=== PATIENT | female | born 1945 | race Hispanic/Latino ===

== ENCOUNTER → 2020-03-07 | Outpatient (CLI) | payer MEDICARE | END | disposition home or self-care (01) | LOC: RAH 09:05 | PROVIDERS: ATTEND Family Medicine | DX: I70.203 Unspecified atherosclerosis of native arteries of extremities, bilateral legs (principal); R20.0 Anesthesia of skin | CPT/HCPCS: 93925 ==

== ENCOUNTER 2025-03-04 09:23 | Observation (INO) | payer MEDICARE, OTHER ==
[~2025-03-04] VITALS: Ht 160 cm; Wt 63.0 kg
--- NOTE | 2025-03-04 09:52 | EKG ---
[facility] Test Date: 2025-03-04 Test Time: 09:49:52 Pat Name: CORRINA LANGE Department: [facility] Room: Gender: F Lead Operator: [id number] : 1945 Requested By: AGUILA WILDE Order Number: [id number] Reading MD: Ba Woodson Measurements Intervals [place] Rate: 95 P: 56 [place]: 124 QRS: -46 QRSD: 103 T: 83 QT: 379 QTc: 477 Interpretive Statements Sinus rhythm Left anterior fascicular block No previous ECG available for comparison Electronically Signed On 03-04-2025 12:29:23 CDT by Ba Woodson Please click the below link to view image of tracing.
[2025-03-04] MEDS: ondanSETRON 4MG INJ IVP ONE (09:53)
[2025-03-04] MEDS: PANTOPrazole 40 MG/VIAL IVP ONE (09:53)
[2025-03-04] MEDS: LACTATED RINGERS 1000ML 1,000 ML IV ONE (09:53)
[2025-03-04 10:37] LABS: BASOPHILS # (AUTO) 0.12 K/uL (0.00-0.20); BASOPHILS % (AUTO) 0.4 % (0.0-5.0); EOSINOPHILS # (AUTO) 0.06 K/uL (0.00-0.70); EOSINOPHILS % (AUTO) 0.2 % (0.0-8.0); HEMATOCRIT 46.5 % (36-48); IMMATURE GRANULOCYTE ABSOLUTE 0.22 K/uL (0-1); LYMPHOCYTES # (AUTO) 0.6 K/uL (1.0-4.8); LYMPHOCYTES % (AUTO) 1.8 % (21.0-51.0); MEAN CORPUSCULAR HEMOGLOBIN 29.8 pg (27.0-33.0); MEAN CORPUSCULAR HGB CONC 32.5 g/dL (32.0-36.0); MEAN CORPUSCULAR VOLUME 91.7 fL (79-99); MONOCYTES # (AUTO) 0.8 K/uL (0.1-1.0); MONOCYTES % (AUTO) 2.6 % (3.0-13.0); NEUTROPHILS # (AUTO) 29.8 K/uL (1.8-7.7); NEUTROPHILS % (AUTO) 94.3 % (40.0-77.0); PLATELET COUNT (AUTO) 282 K/uL (130-400); RED BLOOD CELL COUNT(AUTO) 5.07 MIL/uL (4.00-5.50); RED CELL DISTRIBUTION WIDTH 12.5 % (11.0-15.5)
[2025-03-04 10:47] LABS: CREATININE 0.7 mg/dL (0.5-1.0); POTASSIUM 5.2 mmol/L (3.5-5.1)
[2025-03-04 10:50] LABS: WHITE BLOOD COUNT (AUTO) 31.6 K/uL (4.8-10.8)
[2025-03-04 10:51] LABS: ALBUMIN 3.8 g/dL (3.5-5.0); BILIRUBIN,TOTAL 0.8 mg/dL (0.2-1.0); TOTAL PROTEIN, SERUM 8.1 g/dL (6.0-8.3)
[2025-03-04 11:07] LABS: APPEARANCE,URINE CLEAR (CLEAR); BILIRUBIN,URINE NEGATIVE (NEGATIVE); COLOR,URINE YELLOW (YELLOW); GLUCOSE, URINE (UA) NEGATIVE (NEGATIVE); KETONES,URINE NEGATIVE (NEGATIVE); LEUKOCYTE ESTERASE ,URINE NEGATIVE Leu/uL (NEGATIVE); NITRATE,URINE NEGATIVE (NEGATIVE); OCCULT BLOOD,URINE NEGATIVE (NEGATIVE); PROTEIN,URINE NEGATIVE (NEGATIVE); UROBILINOGEN,URINE 0.2 mg/dL (0.2-1.0)
[2025-03-04 11:11] LABS: ADD UA MICROSCOPIC YES
[2025-03-04 11:22] LABS: BACTERIA,URINE RARE /HPF (None Seen); MUCUS,URINE RARE LPF (None Seen); RBC,URINE 0-1 /HPF (0-1); SQUAMOUS EPITHELIAL CELL,UR RARE /HPF (0-2)
[2025-03-04 11:31] LABS: BAND NEUTROPHILS % (MANUAL) 2 % (0-2); LYMPHOCYTES % (MANUAL) 5 % (22-44); MONOCYTES % (MANUAL) 1 % (2-9); SEGMENTED NEUTROPHILS % 92 % (40-70); TOTAL CELLS COUNTED 100
[2025-03-04 11:32] LABS: MAN.DIFF COMMENT-IMPRESSION MANUAL DIFFERENTIAL; PLATELET MORPHOLOGY COMMENT ADEQUATE; WBC MORPHOLOGY VACUOLATION 1+
--- NOTE | 2025-03-04 11:35 | ERN ---
General Chief Complaint: Diarrhea Stated Complaint: DIARRHEA Time Seen by MD: 09:25 Source: patient, family History of Present Illness Initial Comments PATIENT IS A 79-YEAR-OLD FEMALE COMING IN TO BE EVALUATED FOR DIARRHEA AND VOMITING. PATIENT STATES THAT THESE SYMPTOMS BEGAN EARLIER TODAY. SHE STATES THAT THESE SYMPTOMS BEGAN SHORTLY AFTER SHE THINKS EATING LIVER. SHE WAS ALSO ON MEDICATIONS FOR DIABETES AND BELIEVES THIS IS WHAT IS CAUSING HER DIARRHEA AND VOMITING. Allergies: Coded Allergies: No Known Drug Allergies (Unverified Allergy, Unknown, 03/04/25) Past Medical History Past Medical History: Diabetes-Type II, High Cholesterol, Hypertension Past Surgical History: Hysterectomy, Tonsillectomy ROS Dictation CONSTITUTIONAL: NO CHILLS, NO FEVER, NO WEAKNESS, NO DIAPHORESIS, NO MALAISE. HEAD/FACE: NO SIGNS OF TRAUMA. EENT: NO EYE PAIN, NO BLURRED VISION, NO TEARING, NO DOUBLE VISION, NO EAR PAIN, NO EAR DISCHARGE, NO NOSE PAIN, NO NASAL CONGESTION, NO THROAT PAIN, NO THROAT SWELLING, NO MOUTH PAIN. RESPIRATORY: NO COUGH, NO ORTHOPNEA, NO SOB, NO STRIDOR, NO WHEEZING. CARDIOVASCULAR: NO CHEST PAIN, NO EDEMA, NO PALPITATIONS, NO SYNCOPE. GASTROINTESTINAL/ABDOMINAL: NO ABDOMINAL PAIN, NO CONSTIPATION, NO DIARRHEA, NO NAUSEA, NO VOMITING. GENITOURINARY: NO ABNORMAL DISCHARGE, NO DYSURIA, NO FREQUENT URINATION, NO HEMATURIA. NO COMPLAINTS OF PAIN IN THE GENITALS. MUSCULOSKELETAL: NO BACK PAIN, NO GOUT, NO JOINT PAIN, NO JOINT SWELLING, NO MUSCLE PAIN, NO MUSCLE STIFFNESS, NO NECK PAIN. INTEGUMENTARY: NO CHANGE IN COLOR, NO CHANGE IN HAIR/NAILS, NO DRYNESS, NO LESION, NO LUMPS, NO RASH. NEUROLOGICAL/PSYCH: NO ANXIETY, NOT DEPRESSED, NO EMOTIONAL PROBLEM, NO HEADACHE, NO NUMBNESS, NO PRE-EXISTING DEFICIT, NO HISTORY OF SEIZURES, NO TREMORS, NO WEAKNESS. HEMATOLOGIC/LYMPHATIC: NOT ANEMIC, NO HISTORY OF BLOOD CLOTS, NO APPARENT BLEEDING, NO BRUISING, GLANDS NOT SWOLLEN. ALL SYSTEMS NEGATIVE, EXCEPT NOTED. Physical Exam Physical Exam Dictation VITAL SIGNS: REVIEWED. GENERAL APPEARANCE: ALERT, ORIENTED X3, NO ACUTE DISTRESS, OBESE. HEAD AND FACE: NON-TRAUMATIC. EYES: PERRL, PINK CONJUNCTIVAS, EYELID NO TRAUMA, ANTERIOR CHAMBER CLEAR. EARS: PINNAS INTACT AND NO SIGNS OF TRAUMA OR ERYTHEMA. EAR CANALS CLEAR AND NO DISCHARGE. TMS NO ERYTHEMA. NOSE: NO DISCHARGE, NO BLEEDING. OROPHARYNX: MOUTH NORMAL, TEETH NO CARIES, TONGUE PINK. PHARYNX CLEAR, NO ERYTHEMA. TONSILS NO EXUDATES, NO ABSCESSES NOTED. MUCOUS MEMBRANE MOIST. NECK: SUPPLE, NON-TENDER, NO THYROMEGALY, NO MASSES, NO JVD, NO BRUITS. BREAST: DEFERRED. CHEST: NO TENDERNESS, NO CREPITUS, NO PARADOXICAL MOVEMENT, NO RETRACTIONS. LUNGS: CLEAR, WELL-VENTILATED, SYMMETRIC, NO RALES, NO WHEEZING, NO RHONCHI, NO STRIDOR, GOOD BREATH SOUNDS BILATERALLY. HEART: REGULAR RATE, REGULAR RHYTHM, NO MURMUR, NO GALLOPS. VASCULAR: NO PERIPHERAL EDEMA. ABDOMEN: SOFT, POSITIVE BOWEL SOUNDS, NONDISTENDED, NO GUARDING, NONTENDER, NO REBOUND, NO MASSES NO HEPATOMEGALY, NO SPLENOMEGALY, NO PEARSON'S SIGN, NO HERNIAS. RECTAL: DEFERRED. GENITAL: DEFERRED. NEUROLOGICAL: NORMAL SPEECH, GROSS MOTOR FUNCTION INTACT, GROSS SENSORY FUNCTION INTACT. MUSCULOSKELETAL: NECK NONTENDER, FULL RANGE OF MOTION, BACK NONTENDER, FULL RANGE OF MOTION. EXTREMITIES: NONTENDER, FULL RANGE OF MOTION. SKIN: COLOR PINK, DRY, NO TURGOR, NO RASH, NO LACERATIONS, NO ABRASIONS, NO CONTUSIONS. LYMPHATICS: DEFERRED. Results Laboratory and Microbiology Lab and Micro Result Laboratory Tests Test 03/04/25 09:44 03/04/25 10:06 03/04/25 11:35 White Blood Count 31.6 K/uL (4.8-10.8) *H Red Blood Count 5.07 MIL/uL (4.00-5.50) Hemoglobin 15.1 g/dL (12.0-16.0) Hematocrit 46.5 % (36-48) Mean Corpuscular Volume 91.7 fL (79-99) Mean Corpuscular Hemoglobin 29.8 pg (27.0-33.0) Mean Corpuscular Hemoglobin Concent 32.5 g/dL (32.0-36.0) Red Cell Distribution Width 12.5 % (11.0-15.5) Platelet Count 282 K/uL (130-400) Mean Platelet Volume 10.1 fL (7.5-10.5) Immature Granulocyte % (Auto) 0.7 % (0-1) Neutrophils (%) (Auto) 94.3 % (40.0-77.0) H Lymphocytes (%) (Auto) 1.8 % (21.0-51.0) L Monocytes (%) (Auto) 2.6 % (3.0-13.0) L Eosinophils (%) (Auto) 0.2 % (0.0-8.0) Basophils (%) (Auto) 0.4 % (0.0-5.0) Neutrophils # (Auto) 29.8 K/uL (1.8-7.7) H Lymphocytes # (Auto) 0.6 K/uL (1.0-4.8) L Monocytes # (Auto) 0.8 K/uL (0.1-1.0) Eosinophils # (Auto) 0.06 K/uL (0.00-0.70) Basophils # (Auto) 0.12 K/uL (0.00-0.20) Absolute Immature Granulocyte (auto 0.22 K/uL (0-1) Segmented Neutrophils % 92 % (40-70) H Band Neutrophils % 2 % (0-2) Lymphocytes % (Manual) 5 % (22-44) L Monocytes % (Manual) 1 % (2-9) L Nucleated Red Blood Cells 0.0 % (0.0-0.19) Differential Comment MANUAL DIFFERENTIAL White Cell Morphology Comment VACUOLATION 1+ Platelet Morphology Comment ADEQUATE Red Blood Cell Morphology NORMAL Sodium Level 138 mmol/L (136-145) Potassium Level 5.2 mmol/L (3.5-5.1) H Chloride Level 103 mmol/L (101-111) Carbon Dioxide Level 27 mmol/L (21-32) Blood Urea Nitrogen 23 mg/dL (7-18) H Creatinine 0.7 mg/dL (0.5-1.0) Glomerular Filtration Rate Calc 89 mL/min (>90) Random Glucose 154 mg/dL (70-105) H Total Calcium 9.5 mg/dL (8.5-10.1) Total Bilirubin 0.8 mg/dL (0.2-1.0) Aspartate Amino Transf (AST/SGOT) 49 U/L (10-37) H Alanine Aminotransferase (ALT/SGPT) 45 U/L (12-78) Alkaline Phosphatase 79 U/L (50-136) Total Creatine Kinase 145 U/L (21-232) 90 U/L (21-232) # Troponin I High Sensitivity 5 ng/L (4-50) 8 ng/L (4-50) Total Protein 8.1 g/dL (6.0-8.3) Albumin 3.8 g/dL (3.5-5.0) Lipase 39 U/L (16-77) Urine Color YELLOW (YELLOW) Urine Appearance CLEAR (CLEAR) Urine pH 5.0 (5.0-8.0) Urine Specific [place] 1.021 (1.001-1.031) Urine Protein NEGATIVE mg/dL (NEGATIVE) Urine Glucose (UA) NEGATIVE mg/dL (NEGATIVE) Urine Ketones NEGATIVE mg/dL (NEGATIVE) Urine Occult Blood NEGATIVE (NEGATIVE) Urine Nitrate NEGATIVE (NEGATIVE) Urine Bilirubin NEGATIVE mg/dL (NEGATIVE) Urine Urobilinogen 0.2 mg/dL (0.2-1.0) Urine Leukocyte Esterase NEGATIVE Leonard/uL Urine RBC 0-1 /HPF (0-1) Urine WBC 2-5 /HPF (0-1) H Urine Squamous Epithelial Cells RARE /HPF (0-2) Urine Bacteria RARE /HPF (None Seen) Lactic Acid Level 2.2 mmol/L (0.8-2.5) Labs Reviewed?: Yes EKG/XRAY/US/CT/MRI EKG Comment 03/04/2025 TIME 9:49 A.M. VENTRICULAR RATE 95 SINUS RHYTHM [place] [address] WAVE ELEVATION OR DEPRESSION CT Scan Comment [place] [id number] IMAGING REPORT Signed PATIENT: CORRINA LANGE MR#: [id number] : 1945 SEX: F AGE: 79 LOCATION: [facility] ORDER 115 STATUS: REG ER REPORT#: [id number] SERVICE [id number] REASON: SEPSIS ABD PAIN ORDERING PHYSICIAN: AGUILA WILDE MD PROCEDURE: ABD PEL WO - CT ABDOMEN/PELVIS W/O CONTRAST CT ABDOMEN/PELVIS W/O CONTRAST HISTORY: Abdominal pain COMPARISON: None TECHNIQUE: Multiple sequential axial images of the abdomen and pelvis were obtained from the dome of the diaphragm through symphysis pubis. Patient was not given contrast through intravenous route. Oral contrast was not given. FINDINGS: No pleural effusion is seen bilaterally. There is no evidence of parenchymal disease or pulmonary nodule of the visualized lower lungs. Degenerative changes of the thoracolumbar spine are present. The heart is not enlarged. Small bowel dilatation is seen with fluid filter may be related to enteritis. The liver, spleen, adrenal glands and pancreas are unremarkable. There is no evidence of hydronephrosis bilaterally. No evidence of renal stone is seen. Fecal material is seen in the colon. There are normal size retroperitoneal and mesenteric lymph nodes. No ascites is seen. Atherosclerotic changes are present. Pelvic sidewalls are symmetric bilaterally. Bladder is well distended without wall thickening. IMPRESSION: 1. Small bowel dilatation with fluid-filled may be related to enteritis. CT was performed with one or more following dose reduction techniques: automated exposure control, adjustment of the mA and kv according to patient's size, or use of a iterative reconstruction technique. DICTATED BY: GABBI MENSAH MD DATE: 03/04/25 1257 ELECTRONICALLY SIGNED BY: GABBI MENSAH MD DATE: 03/04/25 1304 [facility] MDM: DIFFERENTIAL DIAGNOSIS: SEPSIS, GASTROENTERITIS, RATIONALE: TESTS CONSIDERED AND ORDERED SECONDARY TO SHARED DECISION MAKING INCLUDE: LABS, ECG AND RADIOLOGY PREVIOUS OUTSIDE RECORDS REVIEWED: OLD ER VISITS. RISK OF COMPLICATION AND/OR MORBIDITY OR MORTALITY OF PATIENT MANAGEMENT: NONE MEDICATIONS-PER MEDICATION RECONCILIATION NEED FOR HOSPITALIZATION: PATIENT DOES MEET CRITERIA FOR HOSPITALIZATION. NEED FOR EMERGENCY MAJOR/MINOR SURGERY: NO THERE ARE NO SOCIAL CONCERNS WITH THIS PATIENT. PRESCRIPTION DRUG MANAGEMENT PRESCRIPTIONS WILL INCLUDE SYMPTOMATIC CARE PATIENT'S PRIOR EXTERNAL MEDICAL RECORDS FROM OTHER ER VISITS WERE REVIEWED BY ME INDICATED. PRIOR TESTING AND RESULTS FROM PREVIOUS VISITS WERE REVIEWED. PRIOR TESTS WERE TAKEN INTO ACCOUNT WITH MEDICAL DECISION MAKING AND RESOURCE UTILIZATION, INDEPENDENT HISTORIAN/HISTORIANS WERE USED TO OBTAIN COMPLETE MEDICAL HISTORY. I INDEPENDENTLY INTERPRETED THE TEST THAT WERE PERFORMED, RESULTS WERE REVIEWED BY ME AND CONSIDERED FINDINGS ON RADIOLOGY IF ORDERED. MEDICAL MANAGEMENT AND EXAMINATION INTERPRETATION DISCUSSIONS WERE HAD BY ME WITH OTHER QUALIFIED HEALTHCARE PROFESSIONALS INDICATED FOR THE PATIENT'S CARE. PATIENT IS A 79-YEAR-OLD FEMALE COMING IN TO BE EVALUATED FOR ABDOMINAL PAIN DIARRHEA AND VOMITING. CT DID NOT DISCLOSE ACUTE FINDINGS. LABORATORY WO RKUP POSITIVE FOR ELEVATED WHITE BLOOD CELL COUNT WITH A HIS FINDINGS AND ELEVATED LACTIC ACID PATIENT WILL BE ADMITTED UNDER THE CARE OF [facility] FOR ONGOING MANAGEMENT OF GASTROENTERITIS WITH SEPSIS. ED Course Orders Procedure Category Date Status Time Cbc With Differential LAB 03/04/25 Complete 09:36 Comprehensive LAB 03/04/25 Complete Metabolic Panel 09:36 Troponin I High LAB 03/04/25 Complete Sensitivity 09:36 Urinalysis Profile LAB 03/04/25 Complete 09:36 12 Lead Ekg Tracing- EKG 03/04/25 Resulted Technical 09:36 Lactated Ringers PHA 03/04/25 Complete 1000ml (Lactated 10:00 Creatine Kinase, Total LAB 03/04/25 Complete 09:36 Lipase LAB 03/04/25 Complete 09:36 Pantoprazole 40mg Inj PHA 03/04/25 Complete (Protonix 40mg Inj 10:00 Ondansetron 4mg Inj PHA 03/04/25 Complete (Zofran 4mg Inj) 10:00 Manual Differential LAB 03/04/25 Complete 09:44 Blood Cult GISELLE 03/04/25 In Process 11:24 Culture Urine GISELLE 03/04/25 In Process 11:24 0.9%Nacl 1000ml (Ns PHA 03/04/25 In Process 1000ml) 11:30 Creatine Kinase, Total LAB 03/04/25 Complete 11:24 Troponin I High LAB 03/04/25 Complete Sensitivity 11:24 Lactic Acid LAB 03/04/25 Complete 11:24 Ceftriaxone 1g Vial PHA 03/04/25 Complete (Rocephine 1g Inj) 12:00 Ct Abdomen/Pelvis W/O CT 03/04/25 Resulted Contrast 11:55 Current Medications Medications (Trade) Dose Ordered Sig/Astrid Route PRN Reason Start Time Stop Time Status Last Admin Dose Admin Ceftriaxone Sodium (ROCEphine 1G INJ) 1 gm ONCE ONCE IVPB 03/04/25 12:00 03/04/25 12:01 DC 03/04/25 12:32 Lactated Ringer's 1,000 ml @ 0 mls/hr ONCE ONCE IV 03/04/25 10:00 03/04/25 10:01 DC 03/04/25 09:53 Ondansetron HCl (zoFRAN 4MG INJ) 4 mg ONCE ONCE IVP 03/04/25 10:00 03/04/25 10:01 DC 03/04/25 09:53 Pantoprazole Sodium (PROTonix 40MG INJ) 40 mg ONCE ONCE IVP 03/04/25 10:00 03/04/25 10:01 DC 03/04/25 09:53 Sodium Chloride 1,920 ml @ 640 mls/hr ONCE ONCE IV 03/04/25 11:30 03/04/25 14:29 03/04/25 11:36 Vital Signs Date Time Temp Pulse Resp B/P (MAP) Pulse Ox O2 Delivery O2 Flow Rate FiO2 03/04/25 13:44 98.1 91 18 121/63 93 Room Air* 0 21 03/04/25 11:37 97.9 95 18 119/54 98 Room Air* 0 21 03/04/25 09:53 97.9 101 18 142/70 98 Room Air* 0 21 03/04/25 09:25 97.9 107 16 164/71 98 Room Air Critical Care Note Comments CRITICAL CARE PROCEDURE NOTE AUTHORIZED AND PERFORMED BY: TOTAL CRITICAL CARE TIME: APPROXIMATELY 36 MINUTES DUE TO A HIGH PROBABILITY OF CLINICALLY SIGNIFICANT, LIFE THREATENING DETERIORATION, THE PATIENT REQUIRED MY HIGHEST LEVEL OF PREPAREDNESS TO INTERV JAVED EMERGENTLY AND I PERSONALLY SPENT THIS CRITICAL CARE TIME DIRECTLY AND PERSONALLY MANAGING THE PATIENT. THIS CRITICAL CARE TIME INCLUDED OBTAINING A HISTORY; EXAMINING THE PATIENT; PULSE OXIMETRY; ORDERING AND REVIEW OF STUDIES; ARRANGING URGENT TREATMENT WITH DEVELOPMENT OF A MANAGEMENT PLAN; EVALUATION OF PATIENT'S RESPONSE TO TREATMENT; FREQUENT REASSESSMENT; AND, DISCUSSIONS WITH OTHER PROVIDERS. THIS CRITICAL CARE TIME WAS PERFORMED TO ASSESS AND MANAGE THE HIGH PROBABILITY OF IMMINENT, LIFE-THREATENING DETERIORATION THAT COULD RESULT IN MULTI-ORGAN FAILURE. IT WAS EXCLUSIVE OF SEPARATELY BILLABLE PROCEDURES AND TREATING OTHER PATIENTS AND TEACHING TIME. PLEASE SEE MDM SECTION AND THE REST OF THE NOTE FOR FURTHER INFORMATION ON PATIENT ASSESSMENT AND TREATMENT. DX & DISP Disposition: Inpatient Decision to Admit Time: 13:59 Departure Impression: Primary Impression: Sepsis Additional Impression: Gastroenteritis Condition: Stable Referrals: ROBERT HERNANDEZ MD (PCP) AGUILA WILDE MD March 04, 2025 11:35
[2025-03-04] MEDS: [UNRECOGNIZED DRUG - OTHER] IV ONE (11:36)
[2025-03-04] MEDS: cefTRIAXone 1G VIAL IVPB ONE (12:32)
--- NOTE | 2025-03-04 13:04 | HMCIMG ---
CT ABDOMEN/PELVIS W/O CONTRAST HISTORY: Abdominal pain COMPARISON: None TECHNIQUE: Multiple sequential axial images of the abdomen and pelvis were obtained from the dome of the diaphragm through symphysis pubis. Patient was not given contrast through intravenous route. Oral contrast was not given. FINDINGS: No pleural effusion is seen bilaterally. There is no evidence of parenchymal disease or pulmonary nodule of the visualized lower lungs. Degenerative changes of the thoracolumbar spine are present. The heart is not enlarged. Small bowel dilatation is seen with fluid filter may be related to enteritis. The liver, spleen, adrenal glands and pancreas are unremarkable. There is no evidence of hydronephrosis bilaterally. No evidence of renal stone is seen. Fecal material is seen in the colon. There are normal size retroperitoneal and mesenteric lymph nodes. No ascites is seen. Atherosclerotic changes are present. Pelvic sidewalls are symmetric bilaterally. Bladder is well distended without wall thickening. IMPRESSION: 1. Small bowel dilatation with fluid-filled may be related to enteritis. CT was performed with one or more following dose reduction techniques: automated exposure control, adjustment of the mA and kv according to patient's size, or use of a iterative reconstruction technique.
--- NOTE | 2025-03-04 14:08 | HP ---
[facility] HISTORY & PHYSICAL Date Patient Seen: March 04, 2025 Time of Visit: 14:07 Supervising Physician: [Dr. Ni] Primary Care Physician: [Dr. Ba Calzada] Outpatient Specialists: [ ] Inpatient Consults: [ ] PROBLEM LIST: Sepsis without septic shock Acute gastroenteritis Hyperkalemia, POA Diabetes mellitus type 2 Hypertension Hyperlipidemia HPI: [This is a 79-year-old female with a history of chronic diarrhea who presented to the ED for evaluation of nausea, vomiting and diarrhea x1 day. Patient states it occurred after eating liver last night. She reports having 5-6 watery stools, no blood or mucus reported. No recent antibiotic use. She says she also had about six episode of nonbloody emesis last night. She also had one episode of diarrhea this morning. States her and daughter [age] the same but were without symptoms. She reports a history of having diarrhea on and off for several years. She was seen Gastroenterology outpatient and had a self-reported colonoscopy about three years ago. She denies any abdominal pain or cramping. Her labs on admission revealed significant leukocytosis of 31. Creatinine is normal. TSH and CK were negative. UA was normal. A CT of the abdomen and pelvis shows small bowel dilatation with fluid filled and may be related to enteritis. Her blood pressure and vitals were normal on admission. Sepsis alert was triggered in the ED. patient was treated with2 L NS,1 L LR, Rocephin Zofran, and Protonix.] PAST MEDICAL HX: see above PAST SURGICAL HX: noncontributory SOCIAL HISTORY: No tobacco, ETOH, or illicit drug use Coded Allergies: No Known Drug Allergies (Unverified Allergy, Unknown, 03/04/25) REVIEW OF SYSTEMS: 12 point ROS reviewed with patient. Pertinent positives mentioned above. Otherwise negative. PHYSICAL EXAM: GENERAL: alert, weak, awake oriented x 3 HEENT: EOMI, Sclera non icteric, moist mucosa NECK: Supple, no JVD, trachea midline LUNGS: Clear breath sounds bilaterally. No wheezes HEART: Regular rate and rhythm. Normal S1 and S2, without murmurs ABD: Abdomen soft, nontender. Bowel sounds present EXT: No clubbing cyanosis or edema NEURO: Alert and oriented to person, follows commands Vital Signs (last 8hr) Date Time Temp Pulse Resp B/P (MAP) Pulse Ox O2 Delivery O2 Flow Rate FiO2 03/04/25 13:44 98.1 91 18 121/63 93 Room Air* 0 03/04/25 11:37 97.9 95 18 119/54 98 Room Air* 0 21 03/04/25 09:53 97.9 101 18 142/70 98 Room Air* 0 21 03/04/25 09:25 97.9 107 16 164/71 98 Room Air LABS: Hematology Labs: Test 03/04/25 09:44 Range/Units White Blood Count 31.6 *H 4.8-10.8 K/uL Red Blood Count 5.07 4.00-5.50 MIL/uL Hemoglobin 15.1 12.0-16.0 g/dL Hematocrit 46.5 36-48 % Mean Corpuscular Volume 91.7 79-99 fL Mean Corpuscular Hemoglobin 29.8 27.0-33.0 pg Mean Corpuscular Hemoglobin Concent 32.5 32.0-36.0 g/dL Red Cell Distribution Width 12.5 11.0-15.5 % Platelet Count 282 130-400 K/uL Mean Platelet Volume 10.1 7.5-10.5 fL Immature Granulocyte % (Auto) 0.7 0-1 % Neutrophils (%) (Auto) 94.3 H 40.0-77.0 % Lymphocytes (%) (Auto) 1.8 L 21.0-51.0 % Monocytes (%) (Auto) 2.6 L 3.0-13.0 % Eosinophils (%) (Auto) 0.2 0.0-8.0 % Basophils (%) (Auto) 0.4 0.0-5.0 % Neutrophils # (Auto) 29.8 H 1.8-7.7 K/uL Lymphocytes # (Auto) 0.6 L 1.0-4.8 K/uL Monocytes # (Auto) 0.8 0.1-1.0 K/uL Eosinophils # (Auto) 0.06 0.00-0.70 K/uL Basophils # (Auto) 0.12 0.00-0.20 K/uL Absolute Immature Granulocyte (auto 0.22 0-1 K/uL Segmented Neutrophils % 92 H 40-70 % Band Neutrophils % 2 0-2 % Lymphocytes % (Manual) 5 L 22-44 % Monocytes % (Manual) 1 L 2-9 % Nucleated Red Blood Cells 0.0 0.0-0.19 % Differential Comment MANUAL DIFFERENTIAL White Cell Morphology Comment VACUOLATION 1+ Platelet Morphology Comment ADEQUATE Red Blood Cell Morphology NORMAL Chemistry Labs: Test 03/04/25 11:35 03/04/25 09:44 Range/Units Lactic Acid Level 2.2 0.8-2.5 mmol/L Total Creatine Kinase 90 # 21-232 U/L Troponin I High Sensitivity 8 4-50 ng/L Sodium Level 138 136-145 mmol/L Potassium Level 5.2 H 3.5-5.1 mmol/L Chloride Level 103 101-111 mmol/L Carbon Dioxide Level 27 21-32 mmol/L Blood Urea Nitrogen 23 H 7-18 mg/dL Creatinine 0.7 0.5-1.0 mg/dL Glomerular Filtration Rate Calc 89 >90 mL/min Random Glucose 154 H 70-105 mg/dL Total Calcium 9.5 8.5-10.1 mg/dL Total Bilirubin 0.8 0.2-1.0 mg/dL Aspartate Amino Transf (AST/SGOT) 49 H 10-37 U/L Alanine Aminotransferase (ALT/SGPT) 45 12-78 U/L Alkaline Phosphatase 79 50-136 U/L Total Protein 8.1 6.0-8.3 g/dL Albumin 3.8 3.5-5.0 g/dL Lipase 39 16-77 U/L DIAGNOSTICS / RADIOLOGY RESULTS: [ ] PLAN Start Levaquin and Flagyl p.o. Continue IVF with NS 50 mL an hour x5 100 mL Order stool panel, lactoferrin, fecal elastase Order a celiac panel Order PBS Monitor WBCs, repeat in a.m. NEURO: Minimize central acting medications as possible. Maintain fall precautions, adequate lighting during the day PULMONARY: Supplemental 02 as needed. Maintain aspiration precautions at all times CARDIOVASCULAR: Follow hemodynamics. Vital signs per facility protocol GI & NUTRITION: Continue with nutritional support. Continue stool softeners and laxatives as needed. KIDNEYS & ELECTROLYTES: Strict monitoring of intake, output and overall fluid balance. Avoid nephrotoxic medications to the extent possible. Medications to be dosed according to renal function. Monitor electrolytes and replace as needed ENDOCRINE: Maintain blood glucose between 100-180 at all times. Hypoglycemia protocol in place INFECTIOUS DISEASE: Trend temperature, WBC and procalcitonin level Follow cultures, deescalate antibiotics as soon as possible. Panculture if new onset fever ONCOLOGY/HEMATOLOGY/COAGULATION: Monitor for s/s of bleeding Monitor hemoglobin, coagulation studies as needed SKIN: Pressure ulcer prevention per facility protocol Specialty mattress ORTHO/REHAB: Continue PT/OT Prophylaxis: Continue GI and DVT prophylaxis Code Status: Full Resuscitation Disposition: TBD Other: Total patient care time exceeds 35 minutes excluding all procedures. MARYANN CARMONA March 04, 2025 14:08
[2025-03-04] MEDS ORDERED: BENZOCAINE/MENTH/CETYLPYRD CL 1 EACH LOZENGE MM PRN (14:30)
[2025-03-04] MEDS ORDERED: ondanSETRON 4MG INJ IV PRN (14:30)
[2025-03-04] MEDS ORDERED: guaiFENesin SUGAR-FREE 100 MG/5 ML UDCUP PO PRN (14:30)
[2025-03-04] MEDS ORDERED: LIDOCAINE HCL 2% VISCOUS 30 ML, MAG/ALUM/SIMETH 30ML 30 ML, DICYCLOMINE HCL 20 MG PO PRN (14:30)
[2025-03-04] MEDS ORDERED: LOPERAMIDE HCL 2 MG CAP PO PRN (14:30)
[2025-03-04] MEDS ORDERED: DiphenhydrAMINE HCL 50 MG/ML VIAL IV PRN (14:30)
[2025-03-04] MEDS ORDERED: ARTIFICAL TEARS SOL 15 ML OP PRN (14:30)
[2025-03-04] MEDS ORDERED: DiphenhydrAMINE HCL 25 MG CAPSULE PO PRN (14:30)
[2025-03-04] MEDS ORDERED: MAG/ALUM/SIMETH 30 ML UDCUP PO PRN (14:30)
[2025-03-04] MEDS ORDERED: NITROGLYCERIN 0.4 MG SL TAB SL PRN (14:30)
[2025-03-04] MEDS ORDERED: acetaMINOPHEN 325 MG TAB PO PRN ×2 (14:30)
[2025-03-04] MEDS ORDERED: guaiFENesin-DM 200/20MG 10ML PO PRN (14:30)
[2025-03-04] MEDS ORDERED: LACTULOSE 20 GM/30 ML UDCUP PO PRN (14:30)
[2025-03-04] MEDS ORDERED: doCUSate SODIUM 100 MG CAP PO PRN (14:30)
[2025-03-04] MEDS ORDERED: polyETHYLene GLYCol 3350 17 GM POWD.PACK PO PRN (14:30)
[2025-03-04] MEDS ORDERED: AMLO-257 PO (16:32)
[2025-03-04] MEDS ORDERED: OXYB5TAB20 PO (16:32)
[2025-03-04] MEDS ORDERED: ERGO500093 PO (16:32)
[2025-03-04] MEDS ORDERED: ATOR10TA69 PO (16:32)
[2025-03-04] MEDS ORDERED: EZET10TA48 PO (16:34)
--- NOTE | 2025-03-04 16:47 | NUR ---
REPORT GIVEN TO NITHIN MANZO AT 1645, PT TAKEN VIA [employer] WITH PERSONAL BELONGINGS.PT STABLE AAOX4 NO C/O PAIN, VITALS WNL.
--- NOTE | 2025-03-04 17:05 | NUR ---
PT ARRIVED TO UNIT FROM ER, BELONGINGS AT BEDSIDE. PT IN NO APPARENT DISTRESS AND DENIES PAIN AT THIS TIME. CHARGE NURSE MADE AWARE.
[2025-03-04 17:06] VITALS: BP 137/60; PULSE 92; RESP 18; TEMP 98.6
[2025-03-04 17:30] VITALS: O2SAT 98
[2025-03-04] MEDS: metRONIDazole 500 MG TABLET PO SCH (19:07)
[2025-03-04 20:00] VITALS: BP 109/63; PULSE 90; RESP 18; TEMP 98.1
[2025-03-04 20:20] VITALS: O2SAT 98
[2025-03-04] MEDS: FAMOTIDINE 20MG TAB PO SCH (20:26)
[2025-03-04] MEDS: FAMOTIDINE 20MG VIAL IV SCH (20:27)
[2025-03-05] VITALS: BP 117/67; PULSE 80; RESP 18; TEMP 98
[2025-03-05 04:00] VITALS: BP 109/59; PULSE 78; RESP 18; TEMP 98.6
[2025-03-05 06:51] LABS: BASOPHILS # (AUTO) 0.04 K/uL (0.00-0.20); BASOPHILS % (AUTO) 0.2 % (0.0-5.0); EOSINOPHILS # (AUTO) 0.15 K/uL (0.00-0.70); EOSINOPHILS % (AUTO) 0.9 % (0.0-8.0); HEMATOCRIT 41.6 % (36-48); IMMATURE GRANULOCYTE ABSOLUTE 0.07 K/uL (0-1); LYMPHOCYTES # (AUTO) 3.4 K/uL (1.0-4.8); LYMPHOCYTES % (AUTO) 21.2 % (21.0-51.0); MEAN CORPUSCULAR HEMOGLOBIN 30.3 pg (27.0-33.0); MEAN CORPUSCULAR HGB CONC 32.9 g/dL (32.0-36.0); MONOCYTES # (AUTO) 0.6 K/uL (0.1-1.0); MONOCYTES % (AUTO) 3.5 % (3.0-13.0); NEUTROPHILS # (AUTO) 11.9 K/uL (1.8-7.7); NEUTROPHILS % (AUTO) 73.8 % (40.0-77.0); PLATELET COUNT (AUTO) 265 K/uL (130-400); RED BLOOD CELL COUNT(AUTO) 4.52 MIL/uL (4.00-5.50); RED CELL DISTRIBUTION WIDTH 12.6 % (11.0-15.5); WHITE BLOOD COUNT (AUTO) 16.2 K/uL (4.8-10.8)
[2025-03-05 07:07] LABS: CREATININE 0.9 mg/dL (0.5-1.0); POTASSIUM 4.5 mmol/L (3.5-5.1)
[2025-03-05 07:45] VITALS: BP 104/55; PULSE 69; RESP 20; TEMP 98.4
[2025-03-05 08:00] VITALS: O2SAT 96
--- NOTE | 2025-03-05 08:56 | PN ---
[facility] PROGRESS NOTE Date Patient Seen: March 05, 2025 Time of Visit: 09:51 Supervising Physician: [Dr. Ni] Primary Care Physician: [Dr. Ba Calzada] Outpatient Specialists: [ ] Inpatient Consults: [ ] PROBLEM LIST: Sepsis without septic shock Acute gastroenteritis Hyperkalemia, POA Diabetes mellitus type 2 Hypertension Hyperlipidemia INTERVAL HISTORY: [Patient's blood pressure remains soft, no fever overnight. She is in no respiratory distress saturating well on room air. Continues on Flagyl and Levaquin. WBC remains elevated but has significantly downtrended. Has not had any nausea, vomiting or diarrhea since admission, And therefore has not collected a stool sample for testing.] REVIEW OF SYSTEMS: 12 point ROS reviewed with patient. Pertinent positives mentioned above. Otherwise negative. PHYSICAL EXAM: GENERAL: alert, weak, awake oriented x 3 HEENT: EOMI, Sclera non icteric, moist mucosa NECK: Supple, no JVD, trachea midline LUNGS: Clear breath sounds bilaterally. No wheezes HEART: Regular rate and rhythm. Normal S1 and S2, without murmurs ABD: Abdomen soft, nontender. Bowel sounds present EXT: No clubbing cyanosis or edema NEURO: Alert and oriented to person, follows commands Vital Signs (last 8hr) Date Time Temp Pulse Resp B/P (MAP) Pulse Ox O2 Delivery O2 Flow Rate FiO2 03/05/25 07:45 98.4 69 20 104/55 96 Room Air 21 03/05/25 04:00 98.6 78 18 109/59 94 Room Air 21 LABS: Hematology Labs: Test 03/05/25 06:29 03/04/25 09:44 Range/Units White Blood Count 16.2 #H 4.8-10.8 K/uL Red Blood Count 4.52 4.00-5.50 MIL/uL Hemoglobin 13.7 12.0-16.0 g/dL Hematocrit 41.6 36-48 % Mean Corpuscular Volume 92.0 79-99 fL Mean Corpuscular Hemoglobin 30.3 27.0-33.0 pg Mean Corpuscular Hemoglobin Concent 32.9 32.0-36.0 g/dL Red Cell Distribution Width 12.6 11.0-15.5 % Platelet Count 265 130-400 K/uL Mean Platelet Volume 9.5 7.5-10.5 fL Immature Granulocyte % (Auto) 0.4 0-1 % Neutrophils (%) (Auto) 73.8 40.0-77.0 % Lymphocytes (%) (Auto) 21.2 21.0-51.0 % Monocytes (%) (Auto) 3.5 3.0-13.0 % Eosinophils (%) (Auto) 0.9 0.0-8.0 % Basophils (%) (Auto) 0.2 0.0-5.0 % Neutrophils # (Auto) 11.9 H 1.8-7.7 K/uL Lymphocytes # (Auto) 3.4 1.0-4.8 K/uL Monocytes # (Auto) 0.6 0.1-1.0 K/uL Eosinophils # (Auto) 0.15 0.00-0.70 K/uL Basophils # (Auto) 0.04 0.00-0.20 K/uL Absolute Immature Granulocyte (auto 0.07 0-1 K/uL Nucleated Red Blood Cells 0.0 0.0-0.19 % Segmented Neutrophils % 92 H 40-70 % Band Neutrophils % 2 0-2 % Lymphocytes % (Manual) 5 L 22-44 % Monocytes % (Manual) 1 L 2-9 % Differential Comment MANUAL DIFFERENTIAL White Cell Morphology Comment VACUOLATION 1+ Platelet Morphology Comment ADEQUATE Red Blood Cell Morphology NORMAL Chemistry Labs: Test 03/05/25 06:29 03/05/25 05:36 03/04/25 15:38 03/04/25 11:35 Range/Units Sodium Level 140 136-145 mmol/L Potassium Level 4.5 3.5-5.1 mmol/L Chloride Level 106 101-111 mmol/L Carbon Dioxide Level 28 21-32 mmol/L Blood Urea Nitrogen 12 7-18 mg/dL Creatinine 0.9 0.5-1.0 mg/dL Glomerular Filtration Rate Calc 66 >90 mL/min Random Glucose 124 H 70-105 mg/dL Total Calcium 8.6 8.5-10.1 mg/dL Whole Blood Glucose 102 70-110 MG/DL Lactic Acid Level 2.1 0.8-2.5 mmol/L Procalcitonin 0.73 H 0.05-0.5 ng/mL Thyroid Stimulating Hormone (TSH) 0.39 0.36-3.74 uIU/mL Total Creatine Kinase 90 # 21-232 U/L Troponin I High Sensitivity 8 4-50 ng/L Test 03/04/25 09:44 Range/Units Total Bilirubin 0.8 0.2-1.0 mg/dL Aspartate Amino Transf (AST/SGOT) 49 H 10-37 U/L Alanine Aminotransferase (ALT/SGPT) 45 12-78 U/L Alkaline Phosphatase 79 50-136 U/L Total Protein 8.1 6.0-8.3 g/dL Albumin 3.8 3.5-5.0 g/dL Lipase 39 16-77 U/L DIAGNOSTICS / RADIOLOGY RESULTS: [ ] PLAN Start Levaquin and Flagyl p.o. Continue IVF with NS 50 mL an hour x5 100 mL Order stool panel, lactoferrin, fecal elastase Order a celiac panel Order PBS Monitor WBCs, repeat in a.m. NEURO: Minimize central acting medications as possible. Maintain fall precautions, adequate lighting during the day PULMONARY: Supplemental 02 as needed. Maintain aspiration precautions at all times CARDIOVASCULAR: Follow hemodynamics. Vital signs per facility protocol GI & NUTRITION: Continue with nutritional support. Continue stool softeners and laxatives as needed. KIDNEYS & ELECTROLYTES: Strict monitoring of intake, output and overall fluid balance. Avoid nephrotoxic medications to the extent possible. Medications to be dosed according to renal function. Monitor electrolytes and replace as needed ENDOCRINE: Maintain blood glucose between 100-180 at all times. Hypoglycemia protocol in place INFECTIOUS DISEASE: Trend temperature, WBC and procalcitonin level Follow cultures, deescalate antibiotics as soon as possible. Panculture if new onset fever ONCOLOGY/HEMATOLOGY/COAGULATION: Monitor for s/s of bleeding Monitor hemoglobin, coagulation studies as needed SKIN: Pressure ulcer prevention per facility protocol Specialty mattress ORTHO/REHAB: Continue PT/OT Prophylaxis: Continue GI and DVT prophylaxis Code Status: Full Resuscitation Disposition: TBD Other: Total patient care time exceeds 35 minutes excluding all procedures. MARYANN CARMONA March 05, 2025 08:56
[2025-03-05] MEDS: LACTATED RINGERS 1000ML 1,000 ML IV SCH (10:24)
[2025-03-05] MEDS: levoFLOXacin 500 MG TABLET PO SCH (10:25)
[2025-03-05 11:59] VITALS: BP 131/67; PULSE 77; RESP 20; TEMP 98.2
[2025-03-05] MEDS ORDERED: ARTIFICAL TEARS SOL 15 ML OP PRN (15:00)
[2025-03-05 15:45] VITALS: BP 126/65; PULSE 70; RESP 20; TEMP 98.6
--- NOTE | 2025-03-05 16:35 | DS ---
[facility] DISCHARGE SUMMARY Date Patient Seen: March 05, 2025 Time of Visit: 17:33 Supervising Physician: [Dr. Ni] Primary Care Physician: [Dr. Ba Calzada] Outpatient Specialists: [ ] Inpatient Consults: [ ] PROBLEM LIST: Sepsis without septic shock, resolved Acute gastroenteritis, resolved Hyperkalemia, POA resolved Diabetes mellitus type 2 Hypertension Hyperlipidemia HOSPITAL COURSE: HPI (per admitting provider) [This is a 79-year-old female with a history of chronic diarrhea who presented to the ED for evaluation of nausea, vomiting and diarrhea x1 day. Patient states it occurred after eating liver last night. She reports having 5-6 watery stools, no blood or mucus reported. No recent antibiotic use. She says she also had about six episode of nonbloody emesis last night. She also had one episode of diarrhea this morning. States her and daughter [age] the same but were without symptoms. She reports a history of having diarrhea on and off for several years. She was seen Gastroenterology outpatient and had a se lf-reported colonoscopy about three years ago. She denies any abdominal pain or cramping. Her labs on admission revealed significant leukocytosis of 31. Creatinine is normal. TSH and CK were negative. UA was normal. A CT of the abdomen and pelvis shows small bowel dilatation with fluid filled and may be related to enteritis. Her blood pressure and vitals were normal on admission. Sepsis alert was triggered in the ED. patient was treated with2 L NS,1 L LR, Rocephin Zofran, and Protonix.] 5/4 Patient's blood pressure remains soft, no fever overnight. She is in no respiratory distress saturating well on room air. Continues on Flagyl and Levaquin. WBC remains elevated but has significantly downtrended. Has not had any nausea, vomiting or diarrhea since admission, And therefore has not collected a stool sample for testing. Will dc home With close follow-up with her PCP. Given elevated white count, we will discharge with antibiotics. Patient was advised to stop Trulicity pending re-evaluation with her PCP and director of undergraduate admissions. This may be the cause of her diarrhea but there may be other causes and for this she will need outpatient evaluation with GI. Patient verbalized understanding. 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 PCP notified of patients admission, hospital course and discharge. New Medications: Levofloxacin (Levofloxacin) 500 Mg Tablet 1 TAB PO DAILY for 5 Days, #5 TAB 0 Refills Metronidazole (Metronidazole) 500 Mg Tablet 1 TAB PO TID for 5 Days, #15 TAB 0 Refills Continued Medications: Amlodipine Besylate (Amlodipine Besylate) 5 Mg Tablet 5 MG PO DAILY, TAB Atorvastatin Calcium (Atorvastatin Calcium) 10 Mg Tablet 10 MG PO HS, TAB Ergocalciferol (Vitamin D2) (Vitamin D2) 1,250 Mcg (93567 Unit) Capsule 1250 MCG PO QWEEK, CAP Ezetimibe (Ezetimibe) 10 Mg Tablet 10 MG PO HS, TAB Oxybutynin Chloride (Oxybutynin Chloride) 5 Mg Tablet 5 MG PO HS, TAB PHYSICAL EXAM: GENERAL: alert, weak, awake oriented x 3 HEENT: EOMI, Sclera non icteric, moist mucosa NECK: Supple, no JVD, trachea midline LUNGS: Clear breath sounds bilaterally. No wheezes HEART: Regular rate and rhythm. Normal S1 and S2, without murmurs ABD: Abdomen soft, nontender. Bowel sounds present EXT: No clubbing cyanosis or edema NEURO: Alert and oriented to person, follows commands FOLLOW-UP: Follow-up with PCP in 2-3 days for re-evaluation. Complete antibiotics upon discharge. Stop Trulicity for now pending re-evaluation with PCP /Endocrinology. Keep appointments with Endocrinology outpatient as scheduled. Follow-up with GI for further evaluation of diarrhea. RECOMMENDATIONS: See Discharge Instructions This case was seen and discussed with my supervising physician. More than 30 minutes spent on discharge process, including evaluation of the patient, discussion with nursing staff, medication reconciliation and follow-up appointments MARYANN CARMONA March 05, 2025 16:35
[2025-03-05] MEDS ORDERED: METR-172 PO (16:50)
[2025-03-05] MEDS ORDERED: LEVO-70 PO (16:50)
--- NOTE | 2025-03-05 19:30 | NUR ---
PATIENT DISCHARGE HOME VIA PERSONAL VEHICLE. IV REMOVED INTACT AND TELE MONITOR REMOVED. ALL QUESTIONS AND CONCERNS ANSWERED.
[2025-03-06] MEDS ORDERED: FAMOTIDINE 20MG VIAL IV SCH (09:00)
== END 2025-03-05 19:45 | disposition home or self-care (01) ==
LOC: EDH 09:23 → EDHIP 09:24 → 4CH 17:00
PROVIDERS: ADMIT Internal Medicine Critical Care Medicine; ATTEND Internal Medicine Critical Care Medicine
DX: A41.9 Sepsis, unspecified organism (principal); K52.9 Noninfective gastroenteritis and colitis, unspecified; E87.5 Hyperkalemia; R11.2 Nausea with vomiting, unspecified; E11.9 Type 2 diabetes mellitus without complications; E78.5 Hyperlipidemia, unspecified; I10 Essential (primary) hypertension; Z90.710 Acquired absence of both cervix and uterus; Z98.890 Other specified postprocedural states; Z79.899 Other long term (current) drug therapy
CPT/HCPCS: 96374; 96361 ×2; 96375; 84443; 82550 ×2; 84484 ×2; 80053; 83690; 85025 ×2; 87040 ×2; 87086 ×2; 87186; 82948 ×4; 83605 ×2; 82784; 81001; 36415 ×2; 74176; 99291; 93005; 84145; 96376; 80048; G0378 ×30; J3490 ×2; J0696; J2405; J2470; J7120; 83516; 86231; 86364

== ENCOUNTER 2025-06-03 11:49 | Inpatient (IN) | payer OTHER ==
[~2025-06-03] VITALS: Ht 160 cm; Wt 65.6 kg
[~2025-06-03 11:49] MED LIST: AMLO-257 PO; ATOR10TA69 PO; ERGO500093 PO; EZET10TA48 PO; LEVO-70 PO; METR-172 PO; OXYB5TAB20 PO
--- NOTE | 2025-06-03 12:03 | ERN ---
ED Note History of Present Illness Stated Complaint: BACK PAIN Chief Complaint: Back Pain-No Injury Time Seen by MD: 11:54 Dictation: PATIENT IS A 80-YEAR-OLD FEMALE HERE WITH TWO COMPLAINTS 1ST COMPLAINT IS SHE IS HAVING RIGHT THORACIC LUMBAR PAIN THAT RADIATES DOWN HER RIGHT LEG SHE HAS HAD FOR THREE DAYS. SECOND COMPLAINT IS SHE SAID SHE FEELS DIZZY AND WAS WORSE WHEN SHE WAS DRIVING OVER TO [facility]. SHE HAD JUST SEEN HER DOCTOR YESTERDAY WHO PRESCRIBED BACLOFEN AND TYLENOL, SHE TOOK IT TOGETHER THIS MO RNING. SHE THINKS IT COULD HAVE BEEN DUE TO THE MEDICATIONS. NIH IS 0. PATIENT STATES SHE HAD NAUSEA VOMITING X1 THIS MORNING. Allergies: Coded Allergies: No Known Drug Allergies (Unverified Allergy, Unknown, 03/04/25) Home Meds Active Scripts Metronidazole (Metronidazole) 500 Mg Tablet, 1 TAB PO TID for 5 Days, #15 TAB 0 Refills Prov:CARMONAMARYANN PA 03/05/25 Levofloxacin (Levofloxacin) 500 Mg Tablet, 1 TAB PO DAILY for 5 Days, #5 TAB 0 Refills Prov:CARMONAMARYANN PA 03/05/25 Reported Medications Ezetimibe (Ezetimibe) 10 Mg Tablet, 10 MG PO HS, TAB 03/04/25 Atorvastatin Calcium (Atorvastatin Calcium) 10 Mg Tablet, 10 MG PO HS, TAB 03/04/25 Ergocalciferol (Vitamin D2) (Vitamin D2) 1,250 Mcg (71111 Unit) Capsule, 1250 MCG PO QWEEK, CAP 03/04/25 Oxybutynin Chloride (Oxybutynin Chloride) 5 Mg Tablet, 5 MG PO HS, TAB 03/04/25 Amlodipine Besylate (Amlodipine Besylate) 5 Mg Tablet, 5 MG PO DAILY, TAB 03/04/25 Past Medical History Past Medical History: Diabetes-Type II, Hypertension Surgical History: Other History: Not Applicable RN Note Reviewed/Agreed w/PFSH: Yes Review of System Dictation CONSTITUTIONAL: NEGATIVE EXCEPT FOR HPI HEAD/FACE: NEGATIVE EXCEPT FOR HPI EENT: NEGATIVE EXCEPT FOR HPI RESPIRATORY: NEGATIVE EXCEPT FOR HPI GASTROINTESTINAL/ABDOMINAL: NEGATIVE EXCEPT FOR HPI RIGHT FLANK PAIN/BACK PAIN GENITOURINARY: NEGATIVE EXCEPT FOR HPI MUSCULOSKELETAL: NEGATIVE EXCEPT FOR HPI INTEGUMENTARY: NEGATIVE EXCEPT FOR HPI NEUROLOGICAL/PSYCH: NEGATIVE EXCEPT FOR HPI MILD DIZZINESS HEMATOLOGIC/LYMPHATIC: NEGATIVE EXCEPT FOR HPI ALL SYSTEMS NEGATIVE, EXCEPT NOTED ABOVE. 13 POINT REVIEW OF SYSTEMS ASSESSED AND ALL NEGATIVE EXCEPT FOR ABOVE. Initial Vital Sign VS Vital Signs Date Time Temp Pulse Resp B/P (MAP) Pulse Ox O2 Delivery O2 Flow Rate FiO2 06/03/25 11:51 96.6 78 16 177/63 98 Room Air 0 06/03/25 11:55 21 Physical Exam Dictation VITAL SIGNS REVIEWED GENERAL APPEARANCE: ALERT, ORIENTED X 3, MILD ACUTE DISTRESS, WELL DEVELOPED, NOURISHED. HEAD AND FACE: NON-TRAUMATIC. EYES: PERRL, PINK CONJUNCTIVAS, EYELID NO TRAUMA, ANTERIOR CHAMBER WITH ARCUS SENILIS. EARS: PINNAS INTACT AND NO SIGNS OF TRAUMA OR ERYTHEMA EAR CANALS CLEAR AND NO DISCHARGE TM NO NOSE: NO DISCHARGE, NO BLEEDING. OROPHARYNX: MOUTH NORMAL, TONGUE PINK, PHARYNX CLEAR,NO ERYTHEMA, TONSILS NO EXUDATES, NO ABSCESSES NOTED, MUCOUS MEMBRANE MOIST NECK: SUPPLE, NON-TENDER, NO THYROMEGALY, NO MASSES, NO JVD, NO BRUITS BREAST:DEFERRED CHEST:NO TENDERNESS, NO CREPITUS, NO PARADOXICAL MOVEMENT, NO RETRACTIONS LUNGS:CLEAR, WELL-VENTILATED, SYMMETRIC, NO RALES, NO WHEEZING, NO RHONCHI, NO STRIDOR, GOOD BREATH SOUNDS BILATERALLY HEART: REGULAR RATE, REGULAR RHYTHM, NO MURMUR, NO GALLOPS VASCULAR: NO PERIPHERAL EDEMA, ABDOMEN: SOFT, POSITIVE BOWEL SOUNDS, NONDISTENDED, NO GUARDING, NONTENDER, NO REBOUND, NO MASSES NO HEPATOMEGALY, NO SPLENOMEGALY, NO PEARSON'S SIGN, NO HERNIAS. POSITIVE RIGHT CVAT RECTAL: DEFERRED GENITAL: DEFERRED NEUROLOGICAL: NORMAL SPEECH, MOTOR FUNCTION INTACT, SENSORY FUNCTION INTACT NIH IS 0 MUSCULOSKELETAL: NECK NONTENDER, FULL RANGE OF MOTION, BACK NONTENDER, FULL RANGE OF MOTION, EXTREMITIES: NONTENDER, FULL RANGE OF MOTION SKIN: COLOR PINK, DRY, NO TURGOR, NO RASH, NO LACERATIONS, NO ABRASIONS, NO CONTUSIONS. LYMPHATIC: DEFERRED Results (Laboratory/Radiology) Laboratory/Radiology Laboratory Tests Test 06/03/25 12:11 06/03/25 12:31 Urine Color YELLOW (YELLOW) Urine Appearance HAZY (CLEAR) Urine pH 6.0 (5.0-8.0) Urine Specific [place] 1.027 (1.001-1.031) Urine Protein 20 mg/dL (NEGATIVE) H Urine Glucose (UA) 500 mg/dL (NEGATIVE) H Urine Ketones 10 mg/dL (NEGATIVE) H Urine Occult Blood NEGATIVE (NEGATIVE) Urine Nitrate 2+ (NEGATIVE) H Urine Bilirubin NEGATIVE mg/dL (NEGATIVE) Urine Urobilinogen 0.2 mg/dL (0.2-1.0) Urine Leukocyte Esterase 75 Leonard/uL (NEGATIVE) H Urine RBC 2-5 /HPF (0-1) H Urine WBC 11-25 /HPF (0-1) H Urine Squamous Epithelial Cells MOD /HPF (0-2) Urine Bacteria MOD /HPF (None Seen) White Blood Count 14.7 K/uL (4.8-10.8) H Red Blood Count 4.64 MIL/uL (4.00-5.50) Hemoglobin 13.8 g/dL (12.0-16.0) Hematocrit 42.7 % (36-48) Mean Corpuscular Volume 92.0 fL (79-99) Mean Corpuscular Hemoglobin 29.7 pg (27.0-33.0) Mean Corpuscular Hemoglobin Concent 32.3 g/dL (32.0-36.0) Red Cell Distribution Width 12.2 % (11.0-15.5) Platelet Count 241 K/uL (130-400) Mean Platelet Volume 9.9 fL (7.5-10.5) Immature Granulocyte % (Auto) 0.4 % (0-1) Neutrophils (%) (Auto) 88.2 % (40.0-77.0) H Lymphocytes (%) (Auto) 8.0 % (21.0-51.0) L Monocytes (%) (Auto) 3.1 % (3.0-13.0) Eosinophils (%) (Auto) 0.1 % (0.0-8.0) Basophils (%) (Auto) 0.2 % (0.0-5.0) Neutrophils # (Auto) 13.0 K/uL (1.8-7.7) H Lymphocytes # (Auto) 1.2 K/uL (1.0-4.8) Monocytes # (Auto) 0.5 K/uL (0.1-1.0) Eosinophils # (Auto) 0.01 K/uL (0.00-0.70) Basophils # (Auto) 0.03 K/uL (0.00-0.20) Absolute Immature Granulocyte (auto 0.06 K/uL (0-1) Nucleated Red Blood Cells 0.0 % (0.0-0.19) White Cell Morphology Comment See comments Sodium Level 140 mmol/L (136-145) Potassium Level 4.9 mmol/L (3.5-5.1) Chloride Level 104 mmol/L (101-111) Carbon Dioxide Level 30 mmol/L (21-32) Blood Urea Nitrogen 17 mg/dL (7-18) Creatinine 0.6 mg/dL (0.5-1.0) Glomerular Filtration Rate Calc 92 mL/min (>90) Random Glucose 241 mg/dL (70-105) H Total Calcium 9.4 mg/dL (8.5-10.1) Troponin I High Sensitivity < 4 ng/L (4-50) L Labs Reviewed?: Yes EKG Comment: EKG SINUS RHYTHM/HEART RATE 61/LEFT AXIS DEVIATION T-WAVE FLATTENING IN LEADS V4 THROUGH V6 ED Course ED Course Orders Procedure Category Date Status Time Cbc With Differential LAB 06/03/25 Complete 11:59 Troponin I High LAB 06/03/25 Complete Sensitivity 11:59 Urinalysis Profile LAB 06/03/25 Complete 11:59 12 Lead Ekg Tracing- EKG 06/03/25 Complete Technical 11:59 0.9%Nacl 1000ml (Ns PHA 06/03/25 Complete 1000ml) 12:00 Ondansetron 4mg Inj PHA 06/03/25 Complete (Zofran 4mg Inj) 12:00 Basic Metabolic Panel LAB 06/03/25 Complete 11:59 Ct Head/Brain W/O CT 06/03/25 Logged Contrast 12:01 Culture Urine GISELLE 06/03/25 In Process 12:29 Blood Cult GISELLE 06/03/25 Logged 12:52 Ceftriaxone 2gm Vial PHA 06/03/25 Complete (Rocephin 2gm Inj) 12:52 Ketorolac PHA 06/03/25 Complete Tromethamine 15mg/Ml 13:30 Current Medications Medications (Trade) Dose Ordered Sig/Astrid Route PRN Reason Start Time Stop Time Status Last Admin Dose Admin Ceftriaxone Sodium (Rocephin 2gm Inj) 2 gm ONCE STAT IVPB 06/03/25 12:52 06/03/25 12:55 DC 06/03/25 12:57 Ketorolac Tromethamine (toRADol) 15 mg ONCE ONCE IV 06/03/25 13:30 06/03/25 13:31 DC Ondansetron HCl (zoFRAN 4MG INJ) 4 mg ONCE ONCE IVP 06/03/25 12:00 06/03/25 12:03 DC 06/03/25 12:51 Sodium Chloride 1,000 ml @ 0 mls/hr ONCE ONCE IV 06/03/25 12:00 06/03/25 12:03 DC 06/03/25 12:55 Vital Signs Date Time Temp Pulse Resp B/P (MAP) Pulse Ox O2 Delivery O2 Flow Rate FiO2 06/03/25 11:55 96.6 78 16 177/63 98 Room Air* 0 21 06/03/25 11:51 96.6 78 16 177/63 98 Room Air 0 1225/PATIENT IS AWARE SHE HAS PROBABLE PYELONEPHRITIS HAS A POSITIVE CVAT WITH 2+ NITRATES AND UTI. SHE WAS GIVEN ROCEPHIN AND FLUIDS. WE WILL BE ADMITTED TO THE HOSPITAL. SHE STATES SHE HAS BEEN HAVING THIS ACHY RIGHT FLANK PAIN FOR SEVERAL DAYS AND HAS A HISTORY OF URINARY TRACT INFECTIONS.1330/ 1330/SPOKE WITH CINTHYA AGUIAR HOSPITALIST REVIEWED EKG LABS AND INTERVENTIONS FOR PYELONEPHRITIS SHE WOULD AGREED TO ADMIT. HEART Score Response (Comments) Value EKG: Repolarization changes 1 Age: > 65yrs (+2) 2 Risk Factors: 1-2 risk factors (+1) 1 Initial Troponin: Normal limit (0) 0 Total 4 Medical Decision Making MDM MDM: DIFFERENTIAL DIAGNOSIS: DIZZINESS/PYELONEPHRITIS/UTI/MUSCLE SPASM/ELECTROLYTE IMBALANCE/DEHYDRATION/ACS/AMI RATIONALE: TESTS CONSIDERED AND ORDERED SECONDARY TO SHARED DECISION MAKING INCLUDE: LABS, ECG AND RADIOLOGY PREVIOUS OUTSIDE RECORDS REVIEWED: OLD ER VISITS. RISK OF COMPLICATION AND/OR MORBIDITY OR MORTALITY OF PATIENT MANAGEMENT: NONE MEDICATIONS-PER MEDICATION RECONCILIATION NEED FOR HOSPITALIZATION: PATIENT DOES MEET CRITERIA FOR HOSPITALIZATION. IV FLUIDS/ANTIBIOTICS NEED FOR EMERGENCY MAJOR/MINOR SURGERY: NO THERE ARE NO SOCIAL CONCERNS WITH THIS PATIENT. PRESCRIPTION DRUG MANAGEMENT PRESCRIPTIONS WILL INCLUDE SYMPTOMATIC CARE PATIENT'S PRIOR EXTERNAL MEDICAL RECORDS FROM OTHER ER VISITS WERE REVIEWED BY Kendal Powell INDICATED. PRIOR TESTING AND RESULTS FROM PREVIOUS VISITS WERE REVIEWED. PRIOR TESTS WERE TAKEN INTO ACCOUNT WITH MEDICAL DECISION MAKING AND RESOURCE UTILIZATION, INDEPENDENT HISTORIAN/HISTORIANS WERE USED TO OBTAIN COMPLETE MEDICAL HISTORY. I INDEPENDENTLY INTERPRETED THE TEST THAT WERE PERFORMED, RESULTS WERE REVIEWED BY ME AND CONSIDERED FINDINGS ON RADIOLOGY IF ORDERED. MEDICAL MANAGEMENT AND EXAMINATION INTERPRETATION DISCUSSIONS WERE HAD BY ME WITH OTHER QUALIFIED HEALTHCARE PROFESSIONALS INDICATED FOR THE PATIENT'S CARE. DX & DISP Disposition: Inpatient Decision to Admit Time: 13:27 Departure Impression: Primary Impression: Pyelonephritis of right kidney Additional Impressions: Uncontrolled diabetes mellitus, Dizziness, Nausea & vomiting Condition: Stable Referrals: ROBERT HERNANDEZ MD (PCP) Time of Disposition: 13:33 I have reviewed the case, and I agree with, Diagnosis and Plan PAO CHAVEZ NP Jun 03, 2025 12:03
[2025-06-03 12:28] LABS: GLUCOSE, URINE (UA) 500 mg/dL (NEGATIVE); LEUKOCYTE ESTERASE ,URINE 75 Leu/uL (NEGATIVE); NITRATE,URINE 2+ (NEGATIVE); OCCULT BLOOD,URINE NEGATIVE (NEGATIVE)
[2025-06-03 12:29] LABS: ADD UA MICROSCOPIC YES; APPEARANCE,URINE HAZY (CLEAR)
[2025-06-03 12:33] LABS: SQUAMOUS EPITHELIAL CELL,UR MOD /HPF (0-2)
--- NOTE | 2025-06-03 12:34 | EKG ---
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
[2025-06-03 12:36] LABS: IMMATURE GRANULOCYTE ABSOLUTE 0.06 K/uL (0-1); NUCLEATED RED BLOOD CELLS 0.0 % (0.0-0.19); PLATELET COUNT (AUTO) 241 K/uL (130-400); RED BLOOD CELL COUNT(AUTO) 4.64 MIL/uL (4.00-5.50); RED CELL DISTRIBUTION WIDTH 12.2 % (11.0-15.5); WHITE BLOOD COUNT (AUTO) 14.7 K/uL (4.8-10.8)
[2025-06-03 12:55] LABS: CREATININE 0.6 mg/dL (0.5-1.0); GLOMERULAR FILTR. RATE CALC 92.0 mL/min (>90); GLUCOSE,RANDOM 241.0 mg/dL (70-105); SODIUM SERUM 140.0 mmol/L (136-145); UREA NITROGEN, BLOOD 17.0 mg/dL (7-18)
[2025-06-03] MEDS: 0.9%NACL 1000ML 1,000 ML IV ONE (12:55)
--- NOTE | 2025-06-03 13:53 | HP ---
[facility] HISTORY & PHYSICAL Date Patient Seen: Jun 03, 2025 Time of Visit: 13:52 Supervising Physician: Kingsley Ortiz MD Primary Care Physician: Reema Morales MD Outpatient Specialists: Dr Fong (Endocrinology) Inpatient Consults: [ ] PROBLEM LIST: Acute pyelonephritis, POA Multifactorial generalized weakness (Baclofen, recent biphosphonate infusion, dehydration, infection) , POA Right flank pain, POA Hypertensive urgency, POA Uncontrolled type 2 diabetes mellitus with hyperglycemia, POA Recurrent UTIs Osteoporosis HPI: A 80-year-old female with a past medical history of significant for type 2 diabetes mellitus, hypertension, frequent urinary tract infection cyanosis fibr osis who presented to the emergency department with chief complaint of dizziness, generalized body weakness and right flank pain with tenderness to site. Symptoms began with the in the last 2-3 days. She reports having received an IV infusion of what she believes is called zoledronic acid a proximally one week ago for her osteoporosis. Two days ago she followed up with the primary care physician who prescribed baclofen for muscle spasms due to flank pain. She reports that after taking baclofen this morning she experienced increased weakness nausea and vomited x1. Patient denies any chest pain, fever, chills, visual changes or focal neurological symptoms. In the ED her and 90s stroke scale was [address] of the head which showed no acute fin dings. She remains generally weak but without focal neurological deficits. In the ED she arrived with a temperature of 96.6 heart rate of 78 respiratory rate of 16 blood pressure 177/63 saturating 98% on room air. Remarkable labs for white count of 14.7 neutrophils of 88.2. Chemistries shows a glucose of 241 mg/dL. Urinalysis shows a protein of 20 glucose 100 and ketones of 10 nitrates of 2+ leukocyte esterase 75 RBCs of 2-5 WBCs of 11 to 25. Patient will be admitted to medical floor for acute pyelonephritis on IV antibiotics. Her generalized body weakness possibly multifactorial given baclofen, related side effects of recent by phosphorus eight, dehydration and infection. PAST MEDICAL HX: see above PAST SURGICAL HX: noncontributory SOCIAL HISTORY: No tobacco, ETOH, or illicit drug use Coded Allergies: No Known Drug Allergies (Unverified Allergy, Unknown, 03/04/25) REVIEW OF SYSTEMS: Const: + dizziness and weakness no fevers or chills Eyes: no recent vision problems ENT: No congestion, ear pain, or sore throat C/V: no chest pain, palpitations or edema Resp: No cough, congestion, wheezing , or Shortness of breath GI: + nausea, one episode of vomiting, denies abdominal pain or diarrhea. : + right flank pain history of recurrent UTIs M/S: + reports treated for recent muscle spasm Skin: No rash Neuro: No focal deficits reported, no headache or visual disturbances. Psych: no depression or anxiety Heme: no abnormal bruising or bleeding Lymph: no swollen glands PHYSICAL EXAM: GENERAL: Elderly female, alert, appears fatigued but not in any acute distress. HEENT: EOMI, Sclera non icteric, moist mucosa NECK: Supple, no JVD, trachea midline LUNGS: Clear breath sounds bilaterally. No wheezes HEART: Regular rate and rhythm. Normal S1 and S2, without murmurs ABD: Abdomen soft, nontender. Bowel sounds present, right flank tenderness. EXT: No clubbing cyanosis or edema NEURO: Alert and oriented x3, cranial nerves 2-7 intact, no focal weakness, normal tone, NIH of 0. Vital Signs (last 8hr) Date Time Temp Pulse Resp B/P (MAP) Pulse Ox O2 Delivery O2 Flow Rate FiO2 06/03/25 11:55 96.6 78 16 177/63 98 Room Air* 0 21 06/03/25 11:51 96.6 78 16 177/63 98 Room Air 0 LABS: Hematology Labs: Test 06/03/25 12:31 Range/Units White Blood Count 14.7 H 4.8-10.8 K/uL Red Blood Count 4.64 4.00-5.50 MIL/uL Hemoglobin 13.8 12.0-16.0 g/dL Hematocrit 42.7 36-48 % Mean Corpuscular Volume 92.0 79-99 fL Mean Corpuscular Hemoglobin 29.7 27.0-33.0 pg Mean Corpuscular Hemoglobin Concent 32.3 32.0-36.0 g/dL Red Cell Distribution Width 12.2 11.0-15.5 % Platelet Count 241 130-400 K/uL Mean Platelet Volume 9.9 7.5-10.5 fL Immature Granulocyte % (Auto) 0.4 0-1 % Neutrophils (%) (Auto) 88.2 H 40.0-77.0 % Lymphocytes (%) (Auto) 8.0 L 21.0-51.0 % Monocytes (%) (Auto) 3.1 3.0-13.0 % Eosinophils (%) (Auto) 0.1 0.0-8.0 % Basophils (%) (Auto) 0.2 0.0-5.0 % Neutrophils # (Auto) 13.0 H 1.8-7.7 K/uL Lymphocytes # (Auto) 1.2 1.0-4.8 K/uL Monocytes # (Auto) 0.5 0.1-1.0 K/uL Eosinophils # (Auto) 0.01 0.00-0.70 K/uL Basophils # (Auto) 0.03 0.00-0.20 K/uL Absolute Immature Granulocyte (auto 0.06 0-1 K/uL Nucleated Red Blood Cells 0.0 0.0-0.19 % White Cell Morphology Comment See comments Chemistry Labs: Test 06/03/25 12:31 Range/Units Sodium Level 140 136-145 mmol/L Potassium Level 4.9 3.5-5.1 mmol/L Chloride Level 104 101-111 mmol/L Carbon Dioxide Level 30 21-32 mmol/L Blood Urea Nitrogen 17 7-18 mg/dL Creatinine 0.6 0.5-1.0 mg/dL Glomerular Filtration Rate Calc 92 >90 mL/min Random Glucose 241 H 70-105 mg/dL Total Calcium 9.4 8.5-10.1 mg/dL Troponin I High Sensitivity < 4 L 4-50 ng/L DIAGNOSTICS / RADIOLOGY RESULTS: [place] [address] [address] IMAGING REPORT Signed PATIENT: CORIRNA LANGE MR#: [id number] : 1945 SEX: F AGE: 80 LOCATION: [facility] ORDER 1202 STATUS: ADM IN REPORT#: [id number] SERVICE 1201 REASON: DIZZINESS VERTIGO ONSET THIS MORNING. ORDERING PHYSICIAN: PAO CHAVEZ NP PROCEDURE: HEAD WO - CT HEAD/BRAIN W/O CONTRAST EXAM: CT Head Without IV contrast. CLINICAL HISTORY: DIZZINESS VERTIGO ONSET THIS MORNING. TECHNIQUE: Axial computed tomography images of the head/brain without intravenous contrast. COMPARISON: None provided. FINDINGS: BRAIN: There is diffuse cerebral atrophy, evidenced by prominence of the cortical sulci and ventricular system, compatible with age-related changes. There is evidence of chronic small vessel ischemic change characterized by bilateral periventricular and deep white matter hypodensities. There is a focus of calcified granuloma in right frontal lobe. No evidence of acute hemorrhage. No mass lesion. No CT evidence for acute territorial infarct. No midline shift or extra-axial collections. VENTRICLES: No hydrocephalus. ORBITS: The orbits are unremarkable. SINUSES AND MASTOIDS: The rest of the paranasal sinuses and mastoid air cells are clear. There is mild mucosal thickening in bilateral ethmoidal sinuses. BONES: No fracture. Hyperostosis of bilateral frontoparietal bone. SOFT TISSUES: Unremarkable. IMPRESSION: 1. No acute intracranial findings. 2. Chronic findings: Diffuse cerebral atrophy and chronic small vessel ischemic changes. /[place] DICTATED BY: CHERISE LARA MD DATE: 06/03/251455 ELECTRONICALLY SIGNED BY: CHERISE LARA MD DATE: 06/03/251455 PLAN Hold baclofen for now IV fluids with LR at 75 mL/hour Monitor electrolytes and renal function Follow urine culture Renal ultrasound to rule out complicated UTI Rocephin 2 g IV Q 24 hours Multimodal pain management and Zofran for nausea Meclizine PRN dizziness Monitor for worsening signs of infection or neurological status Fall precautions PT to eval and treat Case management for DC planning NEURO: Minimize central acting medications as possible. Maintain fall precautions, adequate lighting during the day PULMONARY: Supplemental 02 as needed. Maintain aspiration precautions at all times CARDIOVASCULAR: Follow hemodynamics. Vital signs per facility protocol GI & NUTRITION: Continue with nutritional support. Continue stool softeners and laxatives as needed. KIDNEYS & ELECTROLYTES: Strict monitoring of intake, output and overall fluid balance. Avoid nephrotoxic medications to the extent possible. Medications to be dosed according to renal function. Monitor electrolytes and replace as needed ENDOCRINE: Maintain blood glucose between 100-180 at all times. Hypoglycemia protocol in place INFECTIOUS DISEASE: Trend temperature, WBC and procalcitonin level Follow cultures, deescalate antibiotics as soon as possible. Panculture if new onset fever ONCOLOGY/HEMATOLOGY/COAGULATION: Monitor for s/s of bleeding Monitor hemoglobin, coagulation studies as needed SKIN: Pressure ulcer prevention per facility protocol Specialty mattress ORTHO/REHAB: Continue PT/OT Prophylaxis: Continue GI and DVT prophylaxis Code Status: Full Resuscitation Disposition: TBD Other: Total patient care time exceeds 35 minutes excluding all procedures. ATTESTATION BY PHYSICIAN I have evaluated the patient chart, medical records, and spoke with appropriate staff. I reviewed the documentation, medical decision making, and treatment plan as noted by the mid-level provider above. I agree with the findings and plan of care. Kingsley Ortiz MD, [facility] Jun 03, 2025 13:52
--- NOTE | 2025-06-03 13:57 | HMCIMG ---
EXAM: CT Head Without IV contrast. CLINICAL HISTORY: DIZZINESS VERTIGO ONSET THIS MORNING. TECHNIQUE: Axial computed tomography images of the head/brain without intravenous contrast. COMPARISON: None provided. FINDINGS: BRAIN: There is diffuse cerebral atrophy, evidenced by prominence of the cortical sulci and ventricular system, compatible with age-related changes. There is evidence of chronic small vessel ischemic change characterized by bilateral periventricular and deep white matter hypodensities. There is a focus of calcified granuloma in right frontal lobe. No evidence of acute hemorrhage. No mass lesion. No CT evidence for acute territorial infarct. No midline shift or extra-axial collections. VENTRICLES: No hydrocephalus. ORBITS: The orbits are unremarkable. SINUSES AND MASTOIDS: The rest of the paranasal sinuses and mastoid air cells are clear. There is mild mucosal thickening in bilateral ethmoidal sinuses. BONES: No fracture. Hyperostosis of bilateral frontoparietal bone. SOFT TISSUES: Unremarkable. IMPRESSION: 1. No acute intracranial findings. 2. Chronic findings: Diffuse cerebral atrophy and chronic small vessel ischemic changes. /[place]
[2025-06-03] MEDS ORDERED: GLUCAGON 1MG KIT 1 MG ML IM PRN (14:00)
[2025-06-03] MEDS ORDERED: PoTASSium chl 10% ELIXIR 20MEQ 20 MEQ/15 ML UDCUP PO PRN (14:00)
[2025-06-03] MEDS ORDERED: DEXTROSE 50%-WATER 50 ML DISP.SYRIN IV PRN (14:00)
[2025-06-03] MEDS ORDERED: MAGNESIUM 2GM PREMIX 50ML 50 ML IV PRN (14:00)
--- NOTE | 2025-06-03 14:21 | NUR ---
first attempt to provide report nurse currently admin meds at bedside will call back for report
--- NOTE | 2025-06-03 14:30 | NUR ---
REPORT RECEIVED FROM [facility] IN ER Per ER nurse, patient chief complaint of nause/vomiting, dizziness and bilateral flank pain. Received Rocephin x 2, 1 Liter of fluid, Zofran 4mg, and Toradol 15mg. Blood cultures, Urine, and urine cultures collected in ER. [facility] will follow. Patient admitted for acute pyelonephritis.
--- NOTE | 2025-06-03 14:45 | NUR ---
PATIENT ARRIVED TO UNIT Orders reviewed with patient. Son at bedside. Oriented to unit and room. Pending Renal ultrasound. Son to bring home medications tonight or tomorrow.
[2025-06-03 16:00] VITALS: BP 118/66; PULSE 70; RESP 17
[2025-06-03 17:45] VITALS: O2SAT 98
--- NOTE | 2025-06-03 18:07 | NUR ---
RENAL ULTRASOUND AT BEDSIDE
[2025-06-03 20:00] VITALS: BP 105/55; PULSE 82; RESP 17; TEMP 97.3
[2025-06-04] VITALS (7 sets, daily range): BP systolic 104–127; BP diastolic 54–74; PULSE 61–87; RESP 17–18; TEMP 97.7–98.4; O2SAT 96
[2025-06-04] MEDS: LACTATED RINGERS 1000ML 1,000 ML IV SCH (03:31)
[2025-06-04 05:39] LABS: IMMATURE GRANULOCYTE ABSOLUTE 0.05 K/uL (0-1); NUCLEATED RED BLOOD CELLS 0.0 % (0.0-0.19); PLATELET COUNT (AUTO) 227 K/uL (130-400); RED BLOOD CELL COUNT(AUTO) 3.89 MIL/uL (4.00-5.50); RED CELL DISTRIBUTION WIDTH 12.2 % (11.0-15.5); WHITE BLOOD COUNT (AUTO) 10.9 K/uL (4.8-10.8)
[2025-06-04 06:06] LABS: CREATININE 0.6 mg/dL (0.5-1.0); GLOMERULAR FILTR. RATE CALC 92.0 mL/min (>90); GLUCOSE,RANDOM 105.0 mg/dL (70-105); PHOSPHORUS 2.1 mg/dL (2.5-4.9); SODIUM SERUM 139.0 mmol/L (136-145); UREA NITROGEN, BLOOD 15.0 mg/dL (7-18)
--- NOTE | 2025-06-04 06:15 | HMCIMG ---
EXAMINATION: ULTRASOUND OF THE RETROPERITONEUM. CLINICAL HISTORY: Complicated UTI. COMPARISON: Prior CT dated 03/04/2025. TECHNIQUE: Real-time grayscale ultrasound images of the kidneys. FINDINGS: The kidneys are normal in caliber, the right kidney measures 9.6 x 3.6 x 4.1 cm and the left kidney measures 9.9 x 5.7 x 3.9 cm in its craniocaudal, AP, and transverse dimensions respectively. There is normal renal cortical thickness, and cortical echogenicity. There is no renal calculus or hydronephrosis. The urinary bladder is partially distended with normal wall thickness (0.32 cm). There are no calculi in the urinary bladder. IMPRESSION: No significant abnormality. /[place]
[2025-06-04] MEDS ORDERED: BACL10TA PO (06:47)
[2025-06-04] MEDS ORDERED: LINA5TAB PO (06:47)
[2025-06-04] MEDS: ENOXAPARIN SODIUM 40 MG/0.4 ML SYRINGE SQ SCH (08:52)
--- NOTE | 2025-06-04 11:13 | PN ---
[facility] PROGRESS NOTE Date Patient Seen: Jun 04, 2025 Time of Visit: 11:06 Supervising Physician: [Dr Luciano Primary Care Physician: Reema Morales MD Outpatient Specialists: Dr Fong (Endocrinology) Inpatient Consults: [ ] PROBLEM LIST: Acute cystitis, POA Multifactorial generalized weakness (Baclofen, recent biphosphonate infusion, dehydration, infection) , POA Right flank pain, POA-resolved Hypertensive urgency, POA resolved Uncontrolled type 2 diabetes mellitus with hyperglycemia, POA Recurrent UTIs Osteoporosis PLAN SUMMARY: Supplemental oxygen as needed Continue Rocephin Discontinue baclofen Follow urine cultures and modify antibiotics accordingly Dispo: Home in 24 hours INTERVAL HISTORY: A 80-year-old female with a past medical history of significant for type 2 diabetes mellitus, hypertension, frequent urinary tract infection cyanosis fibrosis who presented to the emergency department with chief complaint of dizziness, generalized body weakness and right flank pain with tenderness to site. Symptoms began with the in the last 2-3 days. She reports having received an IV infusion of what she believes is called zoledronic acid a proximally one week ago for her osteoporosis. Two days ago she followed up with the primary care physician who prescribed baclofen for muscle spasms due to flank pain. She reports that after taking baclofen this morning she experienced increased weakness nausea and vomited x1. Patient denies any chest pain, fever, chills, visual changes or focal neurological symptoms. In the ED her and 90s stroke scale was [address] of the head which showed no acute findings. She remains generally weak but without focal neurological deficits. In the ED she arrived with a temperature of 96.6 heart rate of 78 respiratory r ate of 16 blood pressure 177/63 saturating 98% on room air. Remarkable labs for white count of 14.7 neutrophils of 88.2. Chemistries shows a glucose of 241 mg/dL. Urinalysis shows a protein of 20 glucose 100 and ketones of 10 nitrates of 2+ leukocyte esterase 75 RBCs of 2-5 WBCs of 11 to 25. Patient is seen sitting up in bed does not appear to be in any acute distress at this time. Patient reports her mental status is back to baseline. Patient reports she was prescribed baclofen and reports her mind was all of the brace after administering the medication. She reports she was not even able to arrange her 's medications for him. Patient is awake alert and oriented times 3 today. Patient had a renal ultrasound performed and results were unremarkable. Patient had a CT of the head and no acute intracranial findings reported. Patient does have a history of recurrent UTIs. Urine Cultures as far is positive for greater than [id number] CFUs. We will continue current antibiotic treatment for now. We will await final culture results to ensure patient is on proper treatment. Vital signs are stable. Labs are within normal limits. REVIEW OF SYSTEMS: Const: no fevers or chills Eyes: no recent vision problems ENT: No congestion, ear pain, or sore throat C/V: no chest pain, palpitations or edema Resp: No cough, congestion, wheezing , or Shortness of breath GI: + nausea, one episode of vomiting, denies abdominal pain or diarrhea. : + right flank pain history of recurrent UTIs M/S: + reports treated for recent muscle spasm Skin: No rash Neuro: No focal deficits reported, no headache or visual disturbances. Psych: no depression or anxiety Heme: no abnormal bruising or bleeding Lymph: no swollen glands PHYSICAL EXAM: GENERAL: Elderly female, alert, appears fatigued but not in any acute distress. HEENT: EOMI, Sclera non icteric, moist mucosa NECK: Supple, no JVD, trachea midline LUNGS: Clear breath sounds bilaterally. No wheezes HEART: Regular rate and rhythm. Normal S1 and S2, without murmurs ABD: Abdomen soft, nontender. Bowel sounds present, right flank tenderness. EXT: No clubbing cyanosis or edema NEURO: Alert and oriented x3, cranial nerves 2-7 intact, no focal weakness, normal tone, NIH of 0. Vital Signs (last 8hr) Date Time Temp Pulse Resp B/P (MAP) Pulse Ox O2 Delivery O2 Flow Rate FiO2 06/04/25 08:00 96 Room Air* 0 21 06/04/25 08:00 98.4 61 18 104/64 96 Room Air 06/04/25 04:00 97.7 67 17 120/54 96 Room Air 21 LABS: Hematology Labs: Test 06/04/25 05:26 06/03/25 12:31 Range/Units White Blood Count 10.9 #H 4.8-10.8 K/uL Red Blood Count 3.89 L 4.00-5.50 MIL/uL Hemoglobin 11.6 L 12.0-16.0 g/dL Hematocrit 35.5 L 36-48 % Mean Corpuscular Volume 91.3 79-99 fL Mean Corpuscular Hemoglobin 29.8 27.0-33.0 pg Mean Corpuscular Hemoglobin Concent 32.7 32.0-36.0 g/dL Red Cell Distribution Width 12.2 11.0-15.5 % Platelet Count 227 130-400 K/uL Mean Platelet Volume 9.7 7.5-10.5 fL Immature Granulocyte % (Auto) 0.5 0-1 % Neutrophils (%) (Auto) 66.2 40.0-77.0 % Lymphocytes (%) (Auto) 24.7 21.0-51.0 % Monocytes (%) (Auto) 7.4 3.0-13.0 % Eosinophils (%) (Auto) 0.9 0.0-8.0 % Basophils (%) (Auto) 0.3 0.0-5.0 % Neutrophils # (Auto) 7.2 1.8-7.7 K/uL Lymphocytes # (Auto) 2.7 1.0-4.8 K/uL Monocytes # (Auto) 0.8 0.1-1.0 K/uL Eosinophils # (Auto) 0.10 0.00-0.70 K/uL Basophils # (Auto) 0.03 0.00-0.20 K/uL Absolute Immature Granulocyte (auto 0.05 0-1 K/uL Nucleated Red Blood Cells 0.0 0.0-0.19 % White Cell Morphology Comment See comments Chemistry Labs: Test 06/04/25 05:26 06/04/25 05:22 06/03/25 12:31 Range/Units Sodium Level 139 136-145 mmol/L Potassium Level 3.7 3.5-5.1 mmol/L Chloride Level 106 101-111 mmol/L Carbon Dioxide Level 27 21-32 mmol/L Blood Urea Nitrogen 15 7-18 mg/dL Creatinine 0.6 0.5-1.0 mg/dL Glomerular Filtration Rate Calc 92 >90 mL/min Random Glucose 105 # 70-105 mg/dL Total Calcium 8.3 L 8.5-10.1 mg/dL Phosphorus Level 2.1 L 2.5-4.9 mg/dL Magnesium Level 2.00 1.80-2.40 mg/dL Thyroid Stimulating Hormone (TSH) 1.50 # 0.36-3.74 uIU/mL Whole Blood Glucose 111 H 70-110 MG/DL Hemoglobin A1c 6.5 H 4.0-6.0 % Estimated Average Glucose (eAG) 140 H 70-126 mg/dL Troponin I High Sensitivity < 4 L 4-50 ng/L DIAGNOSTICS / RADIOLOGY RESULTS: PATIENT: CORRINA LANGE MR#: [id number] : 1945 SEX: F AGE: 80 LOCATION: [facility] ORDER 1348 STATUS: ADM IN REPORT#: [id number] SERVICE 134 REASON: rule out complicatyed uti ORDERING PHYSICIAN: LYLE BUSH PROCEDURE: RENAL - US RENAL SONOGRAM EXAMINATION: ULTRASOUND OF THE RETROPERITONEUM. CLINICAL HISTORY: Complicated UTI. COMPARISON: Prior CT dated 03/04/2025. TECHNIQUE: Real-time grayscale ultrasound images of the kidneys. FINDINGS: The kidneys are normal in caliber, the right kidney measures 9.6 x 3.6 x 4.1 cm and the left kidney measures 9.9 x 5.7 x 3.9 cm in its craniocaudal, AP, and transverse dimensions respectively. There is normal renal cortical thickness, and cortical echogenicity. There is no renal calculus or hydronephrosis. The urinary bladder is partially distended with normal wall thickness (0.32 cm). There are no calculi in the urinary bladder. IMPRESSION: No significant abnormality. /[place] DICTATED BY: CHERISE LARA MD DATE: 06/04/25713 ELECTRONICALLY SIGNED BY: CHERISE LARA MD DATE: 06/04/25713 PATIENT: CORRINA LANGE MR#: [id number] : 1945 SEX: F AGE: 80 [facility] STATUS: ADM IN REPORT#: [id number] SERVICE 1201 REASON: DIZZINESS VERTIGO ONSET THIS MORNING. ORDERING PHYSICIAN: PAO CHAVEZ NP PROCEDURE: HEAD WO - CT HEAD/BRAIN W/O CONTRAST EXAM: CT Head Without IV contrast. CLINICAL HISTORY: DIZZINESS VERTIGO ONSET THIS MORNING. TECHNIQUE: Axial computed tomography images of the head/brain without intravenous contrast. COMPARISON: None provided. FINDINGS: BRAIN: There is diffuse cerebral atrophy, evidenced by prominence of the cortical sulci and ventricular system, compatible with age-related changes. There is evidence of chronic small vessel ischemic change characterized by bilateral periventricular and deep white matter hypodensities. There is a focus of calcified granuloma in right frontal lobe. No evidence of acute hemorrhage. No mass lesion. No CT evidence for acute territorial infarct. No midline shift or extra-axial collections. VENTRICLES: No hydrocephalus. ORBITS: The orbits are unremarkable. SINUSES AND MASTOIDS: The rest of the paranasal sinuses and mastoid air cells are clear. There is mild mucosal thickening in bilateral ethmoidal sinuses. BONES: No fracture. Hyperostosis of bilateral frontoparietal bone. SOFT TISSUES: Unremarkable. IMPRESSION: 1. No acute intracranial findings. 2. Chronic findings: Diffuse cerebral atrophy and chronic small vessel ischemic changes. /[place] DICTATED BY: CHERISE LARA MD DATE: 06/03/251455 ELECTRONICALLY SIGNED BY: CHERISE LARA MD DATE: 06/03/251455 PLAN NEURO: Minimize central acting medications as possible. Maintain fall precautions, adequate lighting during the day PULMONARY: Supplemental 02 as needed. Maintain aspiration precautions at all times CARDIOVASCULAR: Follow hemodynamics. Vital signs per facility protocol GI & NUTRITION: Continue with nutritional support. Continue stool softeners and laxatives as needed. KIDNEYS & ELECTROLYTES: Strict monitoring of intake, output and overall fluid balance. Avoid nephrotoxic medications to the extent possible. Medications to be dosed according to renal function. Monitor electrolytes and replace as needed ENDOCRINE: Maintain blood glucose between 100-180 at all times. Hypoglycemia protocol in place INFECTIOUS DISEASE: Trend temperature, WBC and procalcitonin level Follow cultures, deescalate antibiotics as soon as possible. Panculture if new onset fever ONCOLOGY/HEMATOLOGY/COAGULATION: Monitor for s/s of bleeding Monitor hemoglobin, coagulation studies as needed SKIN: Pressure ulcer prevention per facility protocol Specialty mattress ORTHO/REHAB: Continue PT/OT Prophylaxis: Continue GI and DVT prophylaxis Code Status: Full Resuscitation Disposition: Home in 24 hours ATTESTATION BY PHYSICIAN I have seen and examined the patient. I reviewed the documentation, medical decision making, and treatment plan as noted by the mid-level provider above. I agree with the findings and plan of care. Jose Martin Luciano MD, ECTOR N NP Jun 04, 2025 11:13
[2025-06-04] MEDS: EZETIMIBE 10 MG TAB PO SCH (20:01)
[2025-06-04] MEDS: PoTASSium chloRIDE 20MEQ ER 20 MEQ ERTAB PO PRN (20:02)
[2025-06-05 03:56] VITALS: BP 124/69; PULSE 66; RESP 18; TEMP 98.5
[2025-06-05 05:51] LABS: NUCLEATED RED BLOOD CELLS 0.0 % (0.0-0.19); PLATELET COUNT (AUTO) 240.0 K/uL (130-400); RED BLOOD CELL COUNT(AUTO) 3.98 MIL/uL (4.00-5.50); RED CELL DISTRIBUTION WIDTH 12.2 % (11.0-15.5); WHITE BLOOD COUNT (AUTO) 9.1 K/uL (4.8-10.8)
[2025-06-05 05:56] LABS: CREATININE 0.7 mg/dL (0.5-1.0); GLOMERULAR FILTR. RATE CALC 88.0 mL/min (>90); GLUCOSE,RANDOM 91.0 mg/dL (70-105); SODIUM SERUM 141.0 mmol/L (136-145); UREA NITROGEN, BLOOD 16.0 mg/dL (7-18)
[2025-06-05 08:00] VITALS: O2SAT 97
[2025-06-05 08:17] VITALS: BP 163/77; PULSE 65; RESP 19; TEMP 98.1
[2025-06-05] MEDS: amLODIPine 5 MG TAB PO SCH (08:40)
[2025-06-05] MEDS ORDERED: CEFD300C3 PO (10:42)
--- NOTE | 2025-06-05 10:49 | DS ---
[facility] DISCHARGE SUMMARY Date Patient Seen: Jun 05, 2025 Time of Visit: 10:43 Supervising Physician: [Dr Luciano Primary Care Physician: Reema Morales MD Outpatient Specialists: Dr Fong (Endocrinology) Inpatient Consults: [ ] PROBLEM LIST: Acute cystitis, POA (+) GNR Multifactorial generalized weakness (Baclofen, recent biphosphonate infusion, dehydration, infection) , POA - resolved Right flank pain, POA-resolved Hypertensive urgency, POA resolved Uncontrolled type 2 diabetes mellitus with hyperglycemia, POA Recurrent UTIs Osteoporosis HOSPITAL COURSE: HPI (per admitting provider) A 80-year-old female with a past medical history of significant for type 2 diabetes mellitus, hypertension, frequent urinary tract infection cyanosis fibrosis who presented to the emergency department with chief complaint of dizziness, generalized body weakness and right flank pain with tenderness to si te. Symptoms began with the in the last 2-3 days. She reports having received an IV infusion of what she believes is called zoledronic acid a proximally one week ago for her osteoporosis. Two days ago she followed up with the primary care physician who prescribed baclofen for muscle spasms due to flank pain. She reports that after taking baclofen this morning she experienced increased weakness nausea and vomited x1. Patient denies any chest pain, fever, chills, visual changes or focal neurological symptoms. In the ED her and 90s stroke scale was [address] of the head which showed no acute findings. She remains generally weak but without focal neurological deficits. In the ED she arrived with a temperature of 96.6 heart rate of 78 respiratory rate of 16 blood pressure 177/63 saturating 98% on room air. Remarkable labs for white count of 14.7 neutrophils of 88.2. Chemistries shows a glucose of 241 mg/dL. Urinalysis shows a protein of 20 glucose 100 and ketones of 10 nitrates of 2+ leukocyte esterase 75 RBCs of 2-5 WBCs of 11 to 25. Patient is seen sitting up in bed does not appear to be in any acute distress at this time. Patient reports her mental status is back to baseline. Patient reports she was prescribed baclofen and reports her mind was all of the brace after administering the medication. She reports she was not even able to arrange her 's medications for him. Patient is awake alert and oriented times 3 today. Patient had a renal ultrasound performed and results were unremarkable. Patient had a CT of the head and no acute intracranial findings reported. Patient does have a history of recurrent UTIs. Urine Cultures as far is positive for greater than [id number] CFUs. We will continue current antibiotic treatment for now. We will await final culture results to ensure patient is on proper treatment. Vital signs are stable. Labs are within normal limits. Today patient is seen sitting up in bed with no signs of acute distress. Patient's is awake alert and oriented x4. patient reports feeling much improved. Patient's urine culture shows Gram-negative rods. Patient continues on IV antibiotics and white count has trended down within normal limits. Procalcitonin negative. Patient has been advised to follow up with PCP in the next 1-2 days to discuss final urine culture results. Patient has been advised to continue oral antibiotics as prescribed. Patient verbalized understanding. Vital signs are stable. Labs are within normal limits. Med rec has been completed. New prescriptions have been sent to patient's pharmacy. Education regarding current diagnosis been provided to the patient. All questions have been answered. Patient to be discharged home. 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 PCP notified of patients admission, hospital course and discharge. New Medications: Cefdinir (Cefdinir) 300 Mg Capsule 1 CAP PO BID for 7 Days, #14 CAP 0 Refills Continued Medications: Amlodipine Besylate (Amlodipine Besylate) 5 Mg Tablet 5 MG PO DAILY, TAB Ergocalciferol (Vitamin D2) (Vitamin D2) 1,250 Mcg (63940 Unit) Capsule 1250 MCG PO QWEEK, CAP Ezetimibe (Ezetimibe) 10 Mg Tablet 10 MG PO HS, TAB Linagliptin (Tradjenta) 5 Mg Tablet 1 TAB PO DAILY for 30 Days, #30 TAB 0 Refills Oxybutynin Chloride (Oxybutynin Chloride) 5 Mg Tablet 5 MG PO HS, TAB Discontinued Medications: Baclofen (Baclofen) 10 Mg Tablet 1 TAB PO BID for 30 Days, #90 TAB 0 Refills PHYSICAL EXAM: GENERAL: Elderly female, alert, appears fatigued but not in any acute distress. HEENT: EOMI, Sclera non icteric, moist mucosa NECK: Supple, no JVD, trachea midline LUNGS: Clear breath sounds bilaterally. No wheezes HEART: Regular rate and rhythm. Normal S1 and S2, without murmurs ABD: Abdomen soft, nontender. Bowel sounds present, right flank tenderness. EXT: No clubbing cyanosis or edema NEURO: Alert and oriented x3, cranial nerves 2-7 intact, no focal weakness, normal tone, NIH of 0. FOLLOW-UP: Follow-up with PCP in 2-3 days RECOMMENDATIONS: See Discharge Instructions This case was seen and discussed with my supervising physician. More than 30 minutes spent on discharge process, including evaluation of the patient, di scussion with nursing staff, medication reconciliation and follow-up appointments ATTESTATION BY PHYSICIAN I have seen and examined the patient. I reviewed the documentation, medical decision making, and treatment plan as noted by the mid-level provider above. I agree with the findings and plan of care. Jose Martin Luciano MD, ECTOR N NP Jun 05, 2025 10:49
--- NOTE | 2025-06-05 11:00 | NUR ---
PATIENT IS DISCHARGED. IV TAKEN OUT WITH CATHETER INTACT. EDUCATION GIVEN TO PATIENT WELL ANTIBIOTIC THAT WILL BE TAKEN AT HOME. PATIENT INSTRUCTED TO FOLLOW UP WITH PCP FOR FINAL URINE CULTURES. PATIENT CURRENTLY WAITING FOR A RIDE HOME.
--- NOTE | 2025-06-05 14:00 | NUR ---
DC PLAN PATIENT DISCHARGED ALREADY GONE NO NEEDS VERBALIZED BY NURSING. Addendum: 06/05/25 at 1401 by GERDA RENTERIA RN CM Amended: Links added.
== END 2025-06-05 12:00 | disposition home or self-care (01) | DRG 690 ==
LOC: EDH 11:49 → EDHIP 13:39 → 4DH 14:38
PROVIDERS: ADMIT Internal Medicine Critical Care Medicine; ATTEND Internal Medicine Critical Care Medicine
DX: N30.00 Acute cystitis without hematuria (principal); E86.0 Dehydration; I10 Essential (primary) hypertension; B96.89 Other specified bacterial agents as the cause of diseases classified elsewhere; I16.0 Hypertensive urgency; E11.65 Type 2 diabetes mellitus with hyperglycemia; M81.0 Age-related osteoporosis without current pathological fracture; Z86.73 Personal history of transient ischemic attack (TIA), and cerebral infarction without residual deficits; Z87.440 Personal history of urinary (tract) infections
CPT/HCPCS: 36415; 70450; 76770; 80048; 81001; 82948; 83036; 83735; 84100; 84145; 84443; 84484; 85025; 85027; 87040; 87086; 87186; 93005; 99285; G0378; J0696; J1650; J1885; J2405; J2470; J7030